=== PATIENT | female | born 1945 | race Caucasian/White ===

== ENCOUNTER 2017-08-05 14:06 | Emergency (ER) | payer MEDICARE ==
[~2017-08-05] VITALS: Ht 157.5 cm; Wt 55.8 kg
[~2017-08-05 14:06] MED LIST: ACYCLOVIR400 MG PO; ADVAIR 250-501 EACH IH; ALPHA-LIPOIC AC50 MG PO; ATIVAN1 MG PO; B-100 COMPLEX100 MG PO; BACTRIM DS TAB1 EACH PO; BROVANA15 MCG/2 M INH; BUDESONIDE EC3 MG PO; COLOSTRUM500 MG PO; CREON DR 24,001 EACH PO; CYCLOBENZAPRINE10 MG PO; DURAGESIC1 EAC1 TD; DURAGESIC1 EAC3 TD; DURAGESIC1 EACH TD; FORTICAL3.7 ML SL; GABAPENTIN600 MG PO; GAMMAGARD S-D 110 GM IV; GAMMAGARD S-D10 GM IV; GENTAMICIN40 MG/1 ML IRRIGATION; GENTAMICIN80 MG/100; KLOR-CON 1010 MEQ PO; LASIX40 MG PO; LEVOTHYROXINE75 MCG PO; LOMOTIL TABLET1 EACH PO; MACROBID 100 M100 MG PO; MULTI VITAMIN1 EACH PO; MYRBETRIQ50 MG PO; NYSTATIN100000 UN1 PO; OXYCODONE HCL10 MG PO; OXYCODONE HCL5 MG PO; PREVACID 24HR15 MG PO; PROVIGIL PO; PROVIGIL200 MG PO; PULMICORT0.5 MG/2 M INH; REGLAN5 MG PO; RELISTOR12 MG/0.6 SUB-Q; RESTASIS1 DROP OU; SALBUTAMOL INH; SINUS RELIEF14.7 M1 INH; VAGIFEM10 MCG VAGINAL; VAGIFEM10 MCG VG; VITAMIN E400 UNIT PO; VOLTAREN75 MG PO; XOPENEX INH; ZOFRAN4 MG PO
[2017-08-05] MEDS ORDERED: MACRODANTIN100 MG PO (16:15)
== END 2017-08-05 18:16 | disposition home or self-care (01) ==
LOC: ED 14:06
PROC: 0T9B70Z Drainage of Bladder with Drainage Device, Via Natural or Artificial Opening (ICD-10-PCS; principal; 2017-08-05)
DX: R53.1 Weakness (principal); D83.9 Common variable immunodeficiency, unspecified; N39.0 Urinary tract infection, site not specified; Z91.013 Allergy to seafood; Z91.011 Allergy to milk products; Z88.8 Allergy status to other drugs, medicaments and biological substances; Z88.1 Allergy status to other antibiotic agents; Z91.018 Allergy to other foods; Z91.040 Latex allergy status; Z88.5 Allergy status to narcotic agent; Z79.899 Other long term (current) drug therapy
CPT/HCPCS: 51702; 80053; 81001; 83605; 85025; 96374; 96375; 99284; J2060

== ENCOUNTER 2020-07-01 16:10 | Inpatient (IN) | payer MEDICARE ==
[~2020-07-01] VITALS: Ht 157.5 cm; Wt 54.5 kg
[~2020-07-01 16:10] MED LIST changes: +ALPHA LIPOIC AC50 MG PO; -ALPHA-LIPOIC AC50 MG PO; +MACRODANTIN100 MG PO
--- OUTSIDE RECORDS SUMMARY | 2020-07-01 16:42 | XMS ---
PreManage Notification: KATHY SANTANA [employer] Paralegal Events No recent Security Events currently on file CRITERIA MET - PDMP CARE PROVIDERS MACKENZIE PRATT Internal Medicine Current PHONE: [phone] Camille has no Care Guidelines for this patient. E.Susie VISIT COUNT (12 MO.) 1 Clemencia Goodrich M.C. 1 BARRERA Trevino TOTAL 2 NOTE: Visits indicate total known visits. ED/UCC VISIT TRACKING (12 MO.) 07/01/2020 16:11 [facility] [place] TYPE: Emergency COMPLAINT: - SHORTNESS OF BREATH, [facility]ARRHE[facility] DIAGNOSES: - Cough - Cough - emesis - Dysuria - Hypokalemia INPATIENT VISIT TRACKING (12 MO.) No inpatient visits to display in this time frame [email or web address]
[2020-07-01] MEDS ORDERED: VENTOLIN HFA18 GM INH (22:16)
[2020-07-01] MEDS ORDERED: CREON DR 24,001 EACH PO (22:18)
[2020-07-01] MEDS ORDERED: CEFDINIR300 MG PO (22:18)
[2020-07-01] MEDS ORDERED: CELEBREX100 MG PO (22:19)
[2020-07-01] MEDS ORDERED: ALL DAY ALLERGY10 MG PO (22:20)
--- NOTE | 2020-07-01 22:20 | NUR ---
RED EMILYLLO, WARM BLANKET PROVIDED. 1 MORE PILLOW FOR HEELS PROVIDED.
[2020-07-01] MEDS ORDERED: COPPER2 M1 (22:22)
[2020-07-01] MEDS ORDERED: L-LYSINE500 M3 PO (22:41)
[2020-07-01] MEDS ORDERED: MONTELUKAST SOD10 MG PO (22:42)
[2020-07-01] MEDS ORDERED: MYRBETRIQ25 MG PO (22:42)
--- NOTE | 2020-07-01 22:54 | NUR ---
Coop with admit assessment, tele#[address] SV rhythm, denies CP. On room air Lungs with exp and insp crackles at bases. Left base worse than Right. O2 4LNC. chronic. R port a cath accessed but not patent. as per report IVF w 40mEq K infusing LFA, IVF rate decresed to 150 as pt is not tolerataing at the rate that was ordered. c/o L generalized pain, was medicated with Oxycodone 20mg po c/o 10/02 pain. 125mg Fentanyl patches applied to R back. Pt is w/c bound at home
--- NOTE | 2020-07-01 23:45 | NUR ---
BOTTLED WATER AND APPLE JUICE PROVIDED.
--- NOTE | 2020-07-02 00:29 | NUR ---
resting, no ditress, O2 in place, tele#2 in place, ST rhythm at this time. eyes closed, resp even unlabored, call light at bedside, pt drinking her home brought water as she has many food allergies.
--- NOTE | 2020-07-02 01:48 | NUR ---
pt c/o increased itching. receiving Cefepine iv abx. redness around eyes noted, c/o itching head and arm, no redness noted around L arm iv site. will notify
--- NOTE | 2020-07-02 01:52 | NUR ---
Dr Clements notified via phone of pt c/o itchng, new orders reaceived to stop cefepine, give benadryl 25mg q6h prn itching.
--- NOTE | 2020-07-02 02:22 | NUR ---
received 25mg po Benadryl as per orders. cefepine stopped earlier. no further c/o itching at this time
--- NOTE | 2020-07-02 05:05 | NUR ---
pt feels like she is still having a reaction to her abx. she feels like she has a cap over her head. and that she usually gets lorazepan adn needs Benadryl 25mg IV instead of po as it has not done anything for her. no redness or edema of eyes or skin noted at this time
--- NOTE | 2020-07-02 05:19 | NUR ---
dR Carcamo NOTIFIED VIA PHONE OF PTS C/O AND REQUETS. oRDERED lORAZEPAM 1MG PO AND bENADRYL 50MG iv ONCE. LEAVE COPY OF HER ALLERGY PROCOTOL FROM DR ARSALAN RAMIREZ PT REQUESTSING IN CHART AND WILL REVIEW IN AM
--- NOTE | 2020-07-02 05:41 | NUR ---
lorazepam 1mg po and benadryl 50mg iv given. ivf infusing w K. warm pads to arms. cpox in place
--- NOTE | 2020-07-02 06:18 | NUR ---
Pt admitted from ED, increaed SOB. chronic O2 use at home. currently on 3LNC. sats wnl. lungs R fine crackles at bases, L coase crackles. no sob stated. helps with repositioning. Allevyn to buttocks.Received IV 1 liter IVF NS w 40 mEq K started in ED. followed by 1L D5LR w 40mEq K currently infusing at 125cc/hr. IVF will change after this bag, please see e-mar. Received Cefepime IV abx, received 63cc out of 100cc over infused over 2 1/2 hours and started c/o itching and allergic reaction. redness around eyes and slightly reddened face and forehead noted, no sob, no edema, no other redness. Dr Clements notified received Benadryl 25mg po and cefepime was dc'd. warm pads to arms due to c/o discomfort from K being infused on L arm IV site. f/c not chronic placed on admit. Pt has neurogenic bladder and self caths at home. Pt is w/c bound/chronic at home. Pt c/o of Benadryl not effective several hours later. Dr Clements notified again and Benadryl 50mg IV plus lorazepam 1mg po was given. no sob, no redness or edema noted at that time. Pt has chronic pain was medicated with Oxycodone 20mg per pain with good pain relief. Received fresh Fentanyl 125mg patches. Pt has many food and med allergies. uses call light. no emesis .
--- NOTE | 2020-07-02 06:54 | NUR ---
no further c/o itching or allergic reaction, drowsy, cpox in place. tele#[address] tachy at 107-122bpm, Resp 16, sats 94% 3LNC. IVF w K infusing, warm pads to both arms. f/c patent
--- NOTE | 2020-07-02 07:30 | NUR ---
REPORT RECEIVED FROM LEROY APPRENTICE RN. PT IN BED EYES CLOSED, VISUALIZED CHEST RISE AND FALL. PT REPORTEDLY HAS STRESSFUL NIGHT AND WAS ANXIOUS ABOUT MEDS AND CURRENT ILLNESS. WILL LET REST AT THIS TIME.
--- NOTE | 2020-07-02 09:30 | NUR ---
PT HAD LATE BREAKFAST, GIVEN MEDICATIONS W/ BREAKFAST. PT DENIES PAIN THIS AM. STATES SHE FEELS SHE SLEPT WELL AFTER RECEIVING BENADRYL LAST NIGHT. UP TO CHAIR FOR BREAKFAST. ALLEVYN TO [facility] FOR PREVENTATIVE MEASURES PER PT. LUNG SOUNDS CRACKLES SCATTERED THROUGHOUT, DIMINISHED IN BLL. PT DENIES SOB WEARING 3 L NC. STATES SHE NORMALLY WEARS 4L O2 AT NIGHT ONLY WHEN AT HOME, SHE IS NORMALLY ON ROOM AIR DURING THE DAY. BOWEL TONES ACTIVE, PT STATES SHE HAS HAD A POOR APPETITE LATELY, AND HAS DIFFICULTY FINDING "GOOD THINGS TO EAT WITH ALL MY ALLERGIES". LAST BM REPORTED 06/30/20. BLE WEAKNESS, PIVOT TRANSFER W/ FWW. W/C BOUND BASELINE. D5 LR W/ 20 K INFUSING, RATE CHANGED TO 85 MLS/HR. LAC 22 G IV REMAINS PATENT THOUGH SLUGGISH. PORT ON RT ARM ACCESSED IN ER, NO BLOOD RETURN NOTED, NOT USING AT THIS TIME. DENIES FURTHER NEEDS. CALL LIGHT IN REACH.
--- NOTE | 2020-07-02 13:34 | NUR ---
PATIENT IN CHAIR RESTING WITH EYES CLOSED. VISITOR IN ROOM. VITALS AND I&O'S CHARTED. CALL LIGHT IN REACH. NO FURTHER NEEDS AT THIS TIME.
--- NOTE | 2020-07-02 14:00 | NUR ---
AFTERNOON ASSESSMENT COMPLETE. PT REQUESTING PAIN MEDICATION FOR [address] CLARK AWARE. 10 MG OXYCODONE GIVEN. NO ACUTE CHANGES TO ASSESSMENT. PT REMAINS ON 3 L O2 VIA NC. POOR APPETITE EATING 25-50% OF MEALS. REQUESTING TO SPEAK TO DIETITCIAN, DIETARY CALLED. CREON GIVEN W/ MEALS. PT REMAINS SITTING UP IN CHAIR. D5 LR W/ 40 K INFUSING AT 75 MLS/HR IN 22 G LAC IV, REMAINS PATENT. NO SWELLING NOTED. CALL LIGHT IN REACH. PT CALLS APPROPRIATELY.
--- NOTE | 2020-07-02 14:27 | NUR ---
THIS RN INTO ROOM TO COMPLETE CASE MANAGEMENT ASSESSMENT. PATIENT SITTING UP IN CHAIR TALKING WITH DANIEL WAYNE. PATIENT STATES SHE LIVES AT HOME ALONE, ALTHOUGH SHE DOES HAVE RENTAL TENANTS WHO "WATCH AFTER HER FROM TIME TO TIME." PATIENT DENIES HAVING STAIRS INTO THE HOME AND THAT HER HOME IS COMPLETELY HANDICAP ACCESSIBLE DUE TO BED MOSTLY BED BOUND. PATIENT STATES SHE DOES HAVE AN ELECTRIC SCOOTER WHICH SHE USES FOR MOBILITY IN AND OUT OF HER HOME. PATIENT IS ABLE TO TRANSFER HERSELF SHORT DISTANCES TO THE [place], BED AND CHAIR WHEN NEEDED. PATIENT CONTACT MAURICIO QUINTERO [phone] IS PRESENT IN THE ROOM DURING ASSESSMENT. PATIENT IS ESTABLISHED WITH DR. TERENCE HART AND FILLS MEDICATION AT [facility] IN [place]. PATIENT DENIES FINANCIAL NEEDS AT THIS TIME, BUT DOES STATES SHE IS CONSIDERING SELLING HER HOME IN ORDER TO MOVE INTO ASSISTED LIVING. PATIENT REQUESTING INFORMATION ON LOCAL ASSISTED LIVING FACILITIES. INFORMATION GIVEN. WILL CONTINUE TO FOLLOW UP WITH PATIENT DURING HER STAY.
--- NOTE | 2020-07-02 15:10 | EKG ---
[facility] [address] [place] [address] Signed Sinus tachycardia Possible Left atrial enlargement Nonspecific ST and T wave abnormality Abnormal ECG No previous ECGs available Confirmed by OMAR CLARK MD ([id number]) on 07/02/2020 3:10:22 PM Electronically Signed By: OMAR CLARK MD 07/02/20 1510 PATIENT NAME: ESTHERKATHY TALON Electrocardiogram DATE OF : 45 PHYSICIAN: OMAR CLARK MD REPORT #: [id number] REPORT IS CONFIDENTIAL AND NOT TO BE RELEASED WITHOUT AUTHORIZATION
--- NOTE | 2020-07-02 15:44 | NUR ---
PATIENT WAS SLEEPING. I TRIED WAKING HER UP TO GET CLARIFICATION ON HER MULTIPLE FOOD ALLERGIES. SHE DID NOT WAKE UP FULLY TO GET CLEAR ANSWERS. APPARENTLY SHE NEEDS PUREED FOODS. CAREGIVER NOT PRESENT. WILL ADD PUREED TEXTURE AND NEUTROPENIC PRECAUTIONS TO DIET ORDER AND SEND WHAT WE CAN FOR MEALS THAT AREN'T ON HER ALLERGY LIST. HER ADMIT WEIGHT SAYS 187 LBS BUT SHE DOES NOT LOOK LIKE SHE WEIGHS 187 LBS, MAYBE 137 LBS.
[2020-07-02] MEDS ORDERED: EPIN0.3P IM (15:46)
[2020-07-02] MEDS ORDERED: PREDNISONE20 MG PO (15:48)
[2020-07-02] MEDS ORDERED: FENTANYL1 EAC3 TD (15:49)
[2020-07-02] MEDS ORDERED: SODIUM CHLORI1000 ML IRRIGATION (15:51)
[2020-07-02] MEDS ORDERED: GABAPENTIN300 MG PO (15:54)
[2020-07-02] MEDS ORDERED: MYRBETRIQ50 MG PO (16:16)
--- NOTE | 2020-07-02 17:34 | NUR ---
CHECKED ON PATIENT TO WAKE UP FOR DINNER AND WONT STAY AWAKE. WILL REAPPROACH AGAIN
--- NOTE | 2020-07-02 17:45 | NUR ---
PT HAVING DIFFICULTY STAYING AWAKE AFTER RECEIVING OXYCODONE 10 MG. RR 13 AND SATING 95% ON 3 L O2 VIA NC. PT RESPONSIVE TO VERBAL STIMULI. BUT FALLS BACK TO SLEEP SHORTLY AFTER. STATES SHE'S NOT HUNGRY AND IS CATCHING UP ON REST. WILL CONTINUE TO MONITOR. AFTERNOON MEDS HELD PER PT REQUEST.
--- NOTE | 2020-07-02 18:30 | NUR ---
PT AWAKE AND REQUESTING DINNER. AFTERNOON MEDS GIVEN LATE. PT IS MORE ALERT AND ORIENTED. URINE OUTPUT DECREASED. ATTEMPTED TO NOTIFY DR CLARK. 150 LAST 4 HOURS AND PT NEEDS 170 MLS TO FULFILL QUANTITY SUFFICIENT. NOW THAT PT IS AWAKE, ENCOURAGING PO INTAKE OF FLUIDS.
--- NOTE | 2020-07-02 19:04 | NUR ---
22 G IV IN LAC INFILTRATED. ARCH SUPPORT TECHNICIAN REX CALLED AND NOTIFIED. PT HAS POOR VENOUS ACCESS. DYLAN WAYNE ARCH SUPPORT TECHNICIAN TO COME AND ATTEMPT US IV. EGG CRATE MATTRESS PLACED ON BED FOR PREVENTATIVE MEASURES.
--- NOTE | 2020-07-02 19:37 | NUR ---
REPORT RECEIVED FROM DAY SHIFT RN. PT SITTING IN RECLINER WITH EYES CLOSED. AWAKENS EASILY. DENIES NEEDS. ARMS WRAPPED IN WARM BLANKETS FOR IV START. CALL LIGHT IN REACH. WHITE BOARD UPDATED.
--- NOTE | 2020-07-02 20:05 | NUR ---
WHEN IN TO ATTEMPT PERIPHERAL IV ACCESS IT WAS NOTED THAT PREVIOUS IV IN LAC AT INFILTRATION SITE HAD BEEN DISCONTINUED.
--- NOTE | 2020-07-02 20:30 | NUR ---
PERIPHERAL IV ACCESS ATTEMPTS X5 UNSUCCESSFUL, PATIENT TOLERATES WELL BUT UNABLE TO ESTABLISH ACCESS.
--- NOTE | 2020-07-02 22:10 | NUR ---
IV IN LEFT FOREARM PLACED BY FLIGHT KITCHEN MANAGER RN FLUSHED WITH BRISK BLOOD RETURN. RETURNED TO IVF AND IV ABX. AFTER A FEW MINUTES OF INFUSING PT REPORTED BURNING. IVF & ABX STOPPED. IV FLUSHED, NO BLOOD RETURN NOTED. INFILTRATION PALPATED. PIV DC'D WNL. TIP INTACT. CODING AND REIMBURSEMENT SPECIALIST NOTIFIED.
--- NOTE | 2020-07-02 22:15 | NUR ---
V/S AND I&O'S DONE. EVY/SIU CARE DONE.
--- NOTE | 2020-07-02 22:30 | NUR ---
EVENING ASSESSMENT COMPLETE. SCHEDULED MEDS ADMINISTERED PER EMAR. PRN ADMINISTERED FOR REPORTS OF PAIN. O2 3L/NC IN PLACE. SpO2 93%. RESPIRATIONS EVEN. SIU PATENT WITH CLEAR YELLOW URINE. ALLEVYN ON COCCYX WHICH PT REPORTS IS PREVENTATIVE. ASSISTED TO REPOSITION WITH PILLOWS. DENIES QUESTIONS OR CONCERNS. CALL LIGHT IN REACH.
--- NOTE | 2020-07-02 22:38 | NUR ---
CALLED DR CLARK TO DISCUSS DIFFICULTIES WITH PATIENTS PERIPHERAL ACCESS AFTER FAILED PERIPHERAL ATTEMPTS AND INFILTRATION OF U/S PLACED PERIPHERAL IV. PER DR CLARK OKAY TO TRY CATH-VIKI ON PORT AND UPDATED HIM ON THE RESULTS.
--- NOTE | 2020-07-02 23:22 | NUR ---
DISCUSSED WITH REMOTE SENSING ENGINEER UPDATED PLAN REGARDING MULTIPLE PIV ATTEMPTS. RIGHT CHEST PORT FLUSHED WITH 10 ML NS. NO BLOOD RETURN NOTED. REPOSITIONED PT IN MULTIPLE WAYS WITH NO BLOOD RETURN. CATHFLO ADMINISTERED PER PACKAGE INSTRUCTIONS.
--- NOTE | 2020-07-02 23:45 | NUR ---
CATHFLO ALLOWED TO DWELL FOR 30 MIN. IN TO ASSESS PORT. NO BLOOD RETURN NOTED. WILL ALLOW TO DWELL FOR 120 MIN PER PACKAGE INSTRUCTIONS.
--- NOTE | 2020-07-03 02:10 | NUR ---
CATHFLOW ALLOWED TO DWELL FOR 120 MIN. BRISK BLOOD RETURN AT THIS TIME. 5 ML WASTE. PULSATILE FLUSH WITH 30 ML NS. 2100 IV ABX INFUSING AT THIS TIME. PT RESTING WITH EYES CLOSED. AWAKENS EASILY WHEN SPOKEN TO BUT QUICKLY FALLS BACK TO REST. RESPIRATIONS EVEN. 02 3L/NC IN PLACE.
--- NOTE | 2020-07-03 03:50 | NUR ---
IV ABX COMPLETE. IVF WITH POTASSIUM INFUSING WNL. ASSISTED PT TO REPOSITION IN BED. PT DENIES FURTHER NEEDS AT THIS TIME. CALL LIGHT IN REACH.
--- NOTE | 2020-07-03 06:43 | NUR ---
VS AND I&O COMPLETE. MORNING LABS DRAW FROM PORT PER PROTOCOL. PULSATILE FLUSH WITH 30 ML NS AND RETURNED TO IVF. SCDHEDULED MEDS ADMINISTERED PER EMAR. HOB ELEVATED FOR SWALLOWING. MOIST NON-PRODUCTIVE COUGH NOTED. BREAKFAST ORDERED. NO FURTHER NEEDS AT THIS TIME. CALL LIGHT IN REACH.
--- NOTE | 2020-07-03 09:19 | NUR ---
THIS RN WAS LEAVING ON 07/02/20 DR. CLARK REQUEST PATIENT RECORDS TO BE SENT [facility] STAY. PER DR. CLARK PATIENT IS WILLING TO TRANSFER TO [facility] IF ABLE IT IS CLOSER TO HER CHEMO TREATMENT. INFORMATION FOR ADMISSION COMPILED AND SENT TO [facility].
--- NOTE | 2020-07-03 09:28 | NUR ---
PT UP CHAIR THIS MORNING. DECENT APPETITE, TOLERATED BREAKFAST WELL. TAKEN TO RADIOLOGY FOR CHEST X-RAY VIA WHEELCHAIR. BACK TO ROOM NOW AND REQUESTING TO GET BACK TO BED RATHER THAN CHAIR. D5 LR W/ 20K INFUSING INTO PORT. MORNING MEDICATIONS GIVEN. AUSCULTATED LUNG SOUNDS: SCATTERED CRACKLES THROUGHOUT LEFT LOBE; CLEAR RUL, DIMINISHED RLL. PT REMAINS ON 3 L NC SATING 97%, DENIES SOB. 100 MCG & 25 MCG FENTANYL PATCHES TO LEFT SHOULDER. PT C/O MINIMAL PAIN UNDERNEATH RIGHT RIB, HAS BEEN AWARE AND CONTRIBUTED TO CURRENT PNEUMONIA DX. INCENTIVE SPIROMETER AT BEDSIDE. PT DENIES FURTHER NEEDS AT THIS TIME. CALL LIGHT IN REACH.
--- NOTE | 2020-07-03 10:00 | NUR ---
PT WORKING WELL W/ PHYSICAL THERAPY, AMBULATING W/ FWW AND SBA.
--- NOTE | 2020-07-03 10:05 | NUR ---
THIS RN INTO TALK WITH PATIENT. [facility] INFORMATION GIVEN TO PATIENT. PATIENT CONFIRMS THAT SHE WOULD LIKE PLACEMENT AT THIS TIME. THIS RN INFORMED THE PATIENT THAT CHARTS HAVE BEEN SENT TO [facility] FOR ADMISSION AND THIS RN WILL CONTINUE TO FOLLOW UP ON DISCHARGE PLAN.
--- NOTE | 2020-07-03 11:12 | NUR ---
PATIENT RESTING IN BED. WATER REFRESHED. CALL LIGHT IN REACH. NOTHING NEEDED AT THIS TIME
--- NOTE | 2020-07-03 11:40 | NUR ---
DR AMBER TUCKER ON PT. CONTINUING W/ CURRENT PLAN OF CARE. IV ABX, IVF AND PHYSICAL THERAPY. PT LIKELY TO DC TO [facility] TOMORROW. FOLLOWING CASE MANAGEMENT ON PLAN.
[2020-07-03] MEDS ORDERED: CEFTRIAXONE2 G1 IV (11:46)
[2020-07-03] MEDS ORDERED: DURAGESIC1 EAC3 TD (11:47)
[2020-07-03] MEDS ORDERED: DURAGESIC1 EACH TD (11:47)
[2020-07-03] MEDS ORDERED: OXYCODONE HCL5 MG PO (11:48)
[2020-07-03] MEDS ORDERED: ATIVAN1 MG PO (11:49)
[2020-07-03] MEDS ORDERED: DOMPERIDONE PO (12:15)
[2020-07-03] MEDS ORDERED: PROCHLORPERAZIN10 MG PO (12:23)
--- NOTE | 2020-07-03 12:24 | NUR ---
MED REC COMPLETE
--- NOTE | 2020-07-03 13:55 | NUR ---
ATTEMPTED TO CONTACT ANA ROSA AT [facility] REGARDING ADMISSION TO FACILITY. LEFT MESSAGE FOR HER TO RETURN CALL.
--- NOTE | 2020-07-03 15:00 | NUR ---
PT WORKING WELL W/ PHYSICAL THERAPY. BACK TO BED AFTER SESSION. AFTERNOON ASSESSMENT COMPLETE. WEANED DOWN TO 1 L SATING 93%. NO ACUTE CHANGES TO ASSESSMENT OTHERWISE. PT CONTINUES TO DENY SOB EXCEPT W/ EXERTION AT TIMES. GIVEN TYLENOL AND 1 TAB OXYCODONE FOR 9/10 LEFT HIP PAIN AFTER THERAPY. PT STATES PAIN IS ALSO RELIEVED AT REST. NO FURTHER NEEDS AT THIS TIME. CALL LIGHT IN REACH.
--- NOTE | 2020-07-03 16:00 | NUR ---
PT CONTINUES TO C/O 10/02 LEFT HIP PAIN, ALREADY RECEIVED 5 MG OXYCODONE AND TYLENOL AT 1450, GIVEN ADDITIONAL 5 MG OXYCODONE FOR BREAKTHROUGH PAIN. PT REFUSING SHOWER OR BED BATH THIS AFTERNOON. ALLEVYN REMOVED FROM COCCYX (THERE FOR PREVENTATIVE REASONS) AND NO REDNESS NOTED. REPLACED W/ NEW ALLEVYN. PT REPOSITIONED, CATHETER CARE DONE. PT C/O NOSE DRYNESS AND GIVEN HUMIDIFIER FOR O2. DENIES FURTHER NEEDS AT THIS TIME. CALL LIGHT IN REACH.
--- NOTE | 2020-07-03 17:10 | NUR ---
PT GIVEN CREON AND ACYCLOVIR W/ DINNER PER REQUEST. TOLERATING FOOD WELL. PT HAS NOT HAD BM SINCE 06/30/20, UTILIZED NURSE INTITIATED ORDER FOR ABI, VERIFIED W/ PHARMACY D/T PT'S MANY ALLERGIES. PT STATES SHE NORMALLY TAKES A STOOL SOFTENER AT HOME PT TAKES HIGH DOSES OF NARCOTICS.
--- NOTE | 2020-07-03 18:32 | NUR ---
PATIENT IN DEEP SLEEP LEANING TO RIGHT SIDE DROOLING AND WHILE THIS IN STORE MARKETER WAS TRYING TO WAKE HER UP THERE WAS NO RESPONSE. THIS STAFF RIGHT AWAY CALLED RN. PATIENT IS NOW AWAKE COMMUNICATING WITH RN.
--- NOTE | 2020-07-03 18:43 | NUR ---
TAYLOR REYNOSO CALLED THIS RN TO ASSESS PT. CARBON COATER MACHINE OPERATOR REPORTED PT WAS DIFFICULT TO AROUSE, AND WAS SLUMPED TO THE SIDE ALSEEP IN CHAIR AND DROOLING. PT AWAKE AND ALERT WHEN THIS RN ENTERED ROOM, ALSO ORIENTED, 1 DAY OFF ON DATE. FACE AND TONGUE ARE SYMMETRIC. BEE TENDER AND BLE STRENGTH EQUAL. NO PRONATOR DRIFT NOTED. RIGHT PUPIL DILATED AND FIXED, GREATER THAN LEFT WHICH IS PIN POINT CONSTRICTED. PT STATES D/T HX OF TBI RIGHT PUPIL IS USUALLY "A LITTLE LARGER AND DOESN'T CHANGE IN SIZE." SIMILAR EPISODE HAPPENED YESTERDAY AFTER PT RECEIVED OXYCODONE IN THE AFTERNOON, PT WAS DIFFICULT TO ROUSE THEN. SHANIQUA GUSTAFSON RN ALSO IN TO ASSESS. PT DOES NOT FEEL NEW WEAKNESS, NUMBNESS AND TINGLING IN ALL EXTREMITIES AT BASELINE HX NEUROPATHY. VSS BP 146/64 HR 95 SATING 95% ON 1L NC, RR 14, TEMP 98.0.
--- NOTE | 2020-07-03 19:51 | NUR ---
REPORT RECEIVED FROM DAY SHIFT RN. PT SITTING IN RECLINER ALERT AND ORIENTED. DENIES NEEDS AT THIS TIME. WHITE BOARD UPDATED. CALL LIGHT IN REACH.
--- NOTE | 2020-07-03 21:03 | NUR ---
CALL LIGHT ON. ASSISTED pt TO BED, 1PA. LEGS ELEVATED. POSSESSIONS AND CALL LIGHT WITHIN REACH. NO FURTHER REQUESTS AT THIS TIME.
--- NOTE | 2020-07-03 22:34 | NUR ---
EVENING ASSESSMENT COMPLETE. SCHEDULED MEDS ADMINISTERED PER EMAR. PRN ADMINISTERED FOR GENERALIZED PAIN. PORT FLUSHED WITH 20 ML NS. BRISK BLOOD RETURN NOTED. IV ABX INFUSING WNL. OXYGEN INCREASED TO 3L/NC REQUESTED BY PT BECAUSE THAT IS WHAT SHE DOES AT HOME. COARSE LUNG SOUNDS HEARD ON THE LEFT SIDE. PT REPORTS DRY NON-PRODUCTIVE COUGH. ASSISTED TO REPOSITION IN BED. DENIES QUESTIONS OR CONCERNS AT THIS TIME. CALL LIGHT IN REACH.
--- NOTE | 2020-07-03 22:55 | NUR ---
IV ABX COMPLETE. PT RETURNED TO MAINTENANCE FLUIDS. ASSISTED TO REPOSITION IN BED. NO FURTHER NEEDS.
--- NOTE | 2020-07-03 23:50 | NUR ---
CALL LIGHT ANSWERED. PT C/O LEFT SIDE PAIN. PRN FOR PAIN ADMINISTERED PER EMAR. ASSISTED PT TO REPOSITION IN BED.
--- NOTE | 2020-07-04 00:45 | NUR ---
CALL LIGHT ANSWERED. PT REQUESTING ADDITIONAL PRN FOR LEFT SIDE PAIN. PRN FOR PAIN ADMINISTERED PER EMAR. ASSISTED PT TO REPOSITION. NO FURTHER NEEDS.
--- NOTE | 2020-07-04 03:25 | NUR ---
PT RESTING IN BED WITH EYES CLOSED, NAD.
--- NOTE | 2020-07-04 06:12 | NUR ---
IN PATIENT ROOM FOR VITALS AND I&O. PATIENT PROVIDED WITH MEDS BY ROSANA. LILY DENIES ANY FUTHER NEEDS AT THIS TIME.
--- NOTE | 2020-07-04 06:41 | NUR ---
VS AND I&O COMPLETE. PT REQUESTED TO TAKE REGLAN AND CREON WITH BREAKFAST AFTER MEDS SCANNED INTO EMAR. WILL HOLD AND PASS ALONG TO DAY SHIFT RN. SIU WITH QS CLEAR YELLOW URINE. OXYGEN RETURNED TO 1L/NC. PT DENIES FURTHER NEEDS. CALL LIGHT IN REACH.
--- NOTE | 2020-07-04 07:05 | NUR ---
PATIENT CALLED. WARM BLANKET PROVIDED. NO OTHER NEEDS AT THIS TIME.
--- NOTE | 2020-07-04 07:25 | NUR ---
this received report from tru ramirez. pt appears to be resting this am with respirations noted.
--- NOTE | 2020-07-04 08:20 | NUR ---
PHONE CALL RECVD FROM ANA ROSA AT [facility]. ANA ROSA STATES THAT SHE IS CONCERNED ABOUT THE PATIENT FOOD ALLERGIES. ANA ROSA STATES SHE WILL DISCUSS THE PATIENT WITH THEIR DRILLING FIELD OPERATOR AND CALL BACK WITH A DETERMINATION TODAY.
--- NOTE | 2020-07-04 09:00 | NUR ---
PATIENT AWAKE IN BED, VITALS AND I&OS CHARTED. FACE AND HANDS WASHED. RN NATI IN ROOM. CALL LIGHT IN REACH
--- NOTE | 2020-07-04 09:07 | NUR ---
this rn in pts room to give pt morning meds and do morning assessment. pt doesn't have concerns have this time.
--- NOTE | 2020-07-04 09:16 | NUR ---
while pts taking morning meds pt states that she felt like she was getting short of breath. this rn turned up oxygen to 2l per pt request for comfort. pt is moving air well in lungs
--- NOTE | 2020-07-04 09:25 | NUR ---
RECVD CALL BACK FROM ANA ROSA AT [facility], PATIENT DECLINED DUE TO WORRY REGARDING FOOD ALLERGIES. THIS RN IN TO SPEAK WITH PATIENT REGARDING NEW PLACEMENT PLAN. INITIALLY LESLIE HERNANDEZ DISCUSSED WITH PATIENT, BUT SHE STATES SHE WOULD LIKE TO BE PLACED IN [place] SINCE SHE RECVS HER IV/IG WEEKLY INFUSIONS THERE AT THIS TIME. ADVISED PATIENT I WILL CONTACT [facility] AND LESLIE AT THE [facility] FOR ADMISSION. WILL UP DATE PATIENT WHEN I RECIEVE A RESPONCE FROM EITHER FACILITY. SHANIQUA GUSATFSON RN UPDATED.
--- NOTE | 2020-07-04 10:00 | NUR ---
SPOKE WITH SUMAN AT [facility]. FAX NUMBER OBTAINED AND RECORDS SENT. PER SUMAN SHE WILL REVIEW THE CHART WHEN RECVD AND CALL BACK WITH A DECISION.
--- NOTE | 2020-07-04 10:13 | NUR ---
this rn in pts room per pt request to provide pt with pt with pain meds for pain in her left hip
--- NOTE | 2020-07-04 10:59 | NUR ---
CALL PLACED TO [facility], PATIENTS RECORDS RECVD VIA FAX. STAFF STATES SHE WILL MAKE SURE THEIR ADMISSIONS DEPARTMENT WILL BE REVIEWING THE CHART.
--- NOTE | 2020-07-04 11:45 | NUR ---
this rn in pts room to give pt her mid day meds. pt states that the pain meds helped her left hip pain. pt setup for lunch and states that she needs nothing else at this time
--- NOTE | 2020-07-04 13:03 | NUR ---
PER FAX FROM [facility] NO AVAILABLE BEDS AT THIS TIME AND FACILITY UNABLE TO MANAGE PATIENTS ALLERGIES WITHIN THE FACILITY.
--- NOTE | 2020-07-04 14:55 | NUR ---
PATIENT AWAKE, IN BED. LUNCH TRAY JUST BROUGHT OUT BY INSTALLER HELPER. PATIENT STATES SHE ONLY ATE A COUPLE BITES OF GREEN BEANS BECAUSE SHE COULDN'T SWALLOW THEM. SHE ATE ALL OF THE RICE AND REALLY LIKED IT. ALSO HAD PUREED CHICKEN. SHE NEEDS CERTAIN SOLID FOODS PUREED DUE TO THE RIGHT SIDE OF HER THROAT BEING PARALYZED. SHE ENJOYED THE CHOCOLATE GF COOKIE SINCE IT IS SOFTER. SHE LIKES THE FOOD SHE HAS BEEN GETTING AND IS ENJOYING MORE VARIETY THAN FOODS SHE EATS AT HOME. SOMEONE DOES HER GROCERY SHOPPING AND HELPS WITH THE COOKING. USUALLY ITS A CROCKPOT ROAST OR SOUP. SHE WAS NOT DRINKING ANY ENSURE OR BOOST BECAUSE SHE IS ALLERGIC TO SOY. SHE CANNOT DRINK MILK WITHOUT TAKING LACTASE. SHE WILL EAT SMALL AMOUNTS OF YOGURT WITHOUT TAKING LACTASE AND SHE ASKED FOR SOME YOGURT FOR AN EVENING SNACK AND FOR BREAKFAST. GLUTEN-FREE MENU IS AT HER BEDSIDE. MAJOR FOOD ALLERGIES ARE: SALMON, SOY, WHEAT, ASPARTAME, GRAPEFRUIT, PEANUT, CASHEW, SHELLFISH, AND PUMPKIN. SHE CAN TOLERATE ALMONDS IN THE FORM OF ALMOND MILK. I TOOK HER DINNER ORDER FOR TONIGHT AND BREAKFAST ORDER FOR TOMORROW. HER WEIGHT IS 120 LBS WHICH GIVES HER A BMI OF 21.95. WILL CONTINUE TO MONITOR.
--- NOTE | 2020-07-04 17:25 | NUR ---
PATIENT UP TO CHIAR, VITALS AND I&OS CHARTED. CALL LIGHT IN REACH, SIU EMPTIED. STEP STOOL UNDER FEET FOR COMFORT.
--- NOTE | 2020-07-04 17:45 | NUR ---
THIS RN PROVIDED PT WITH 10MG OF OXY FOR PTS STATED PAIN PER PTS REQUEST
--- NOTE | 2020-07-04 21:00 | NUR ---
Pt boosted to hob, sorenson care done, geneva care done, skin barrier cream applied, chux changed. Call light within reach, bed in lowest position. No further assistace needed at this time.
--- NOTE | 2020-07-04 21:51 | NUR ---
medicated with Oxycodone 20mg po 8/10 l sided pain. O2 2LNC, no other distress.
--- NOTE | 2020-07-04 23:37 | NUR ---
medicated with lorazepam 2mg earlier, anxiety, I dislocated my left shoulder and is back on. flexoril 10mg po given. "I just wont be able to use l arm for a while, i was reaching for my chap stick, it happens all the time" "Its backin place now". reassured
--- NOTE | 2020-07-05 00:57 | NUR ---
RESTING, EYS CLOSED, NO DISTRESS, O2 IN PLACE, F/C PATENT, CALL LIGHT AT BEDSIDE, HOB ELEVATED TO COMFORT
--- NOTE | 2020-07-05 03:00 | NUR ---
RESTING, NO DISTRESS, O2 IN PLACE, CALL LIGHT AT BEDSIDE
--- NOTE | 2020-07-05 06:41 | NUR ---
Pt has slept, O2 2LNC, was medicated with Oxycodone per pain with good pain results, and medicated per anxiety . Medicated with muscle relaxant per c/o 'dislocation and placeing of chronic issue of left shoulder, moving l arm well, no edema . no crepitus noted around left shoulder or visual abnormality f/c patent, helps with turning in bed. stood edge of bed earlier in shift, tolerated well 2PA. IVF INFUSING.
--- NOTE | 2020-07-05 07:30 | NUR ---
Received call from Bahvani from [facility] and they have accepted Amanda for today. UPdated friend will transport. would like her there this am if possible. Orders printed and placed on Dr. desk. Beckham updated we will see at 0830 and I will attempt to have her dc this am.
--- NOTE | 2020-07-05 08:30 | NUR ---
REPORT RECEIVED FROM NIGHT RN AND PT. CARE RESUMED. PT. IS ALERT AND ORIENTED, SLIGHTLY ANXIOUS. LUNGS DIM. IN THE BASES. SHE IS ON 2L AND O2 SAT. IS 96%. WHEN ATTEMPTING TO TITRATE O2 TO 1L, PT. REFUSED AND STATED THE NURSE TRIED YESTERDAY AND SHE DID NOT TOLERATE WELL. SIU PATENT AND DRAINING LIGHT YELLOW URINE. PT. STATES SHE CAN PIVOT WITH ASSISTANCE, BUT HAS NOT WALKED IN A WHILE. IV SITE WNL AND FLUSHES WELL. DISCUSSED POC, DC, AND MEDS. PT. LEFT RESTING IN BED WITH CALL LIGHT IN REACH.
--- NOTE | 2020-07-05 09:05 | NUR ---
ORDERS, RX, PASRR AND DC SUMMARY SENT TO REHAB.
--- NOTE | 2020-07-05 09:19 | NUR ---
ATTEMPTED TO CONTACT DYLAN QUINTERO FOR PATIENT TRANSPORTATION TO [facility]. NO ANSWER AND NO VOICEMAIL SET UP TO LEAVE MS. WILL CONTINUE TO TRY TO CONTACT.
--- NOTE | 2020-07-05 09:49 | NUR ---
SPOKE WITH DYLAN QUINTERO PATIENT POA. DYLAN STATES THAT HE WILL GATHER HER BELONGINGS AND CAR THEN WILL COME TO PICK PATIENT UP. PATIENT UPDATED AND OKAY WITH PLAN OF DISCHARGE. HILTON GUSTAFSON RN NOTIFIED OF THE PLAN. WILL BE AVAILABLE FOR FOLLOW UP IF NEEDED.
== END 2020-07-05 12:20 | DRG 196 ==
LOC: ED 16:10 → MS 20:43
PROVIDERS: ADMIT Internal Medicine; ATTEND Internal Medicine
DX: J84.9 Interstitial pulmonary disease, unspecified (principal); J18.9 Pneumonia, unspecified organism; J96.21 Acute and chronic respiratory failure with hypoxia; D80.1 Nonfamilial hypogammaglobulinemia; F11.23 Opioid dependence with withdrawal; Z20.822 Contact with and (suspected) exposure to COVID-19; E87.6 Hypokalemia; J44.9 Chronic obstructive pulmonary disease, unspecified; J45.40 Moderate persistent asthma, uncomplicated; G89.4 Chronic pain syndrome; K21.9 Gastro-esophageal reflux disease without esophagitis; K59.09 Other constipation; R19.7 Diarrhea, unspecified; N31.9 Neuromuscular dysfunction of bladder, unspecified; M81.0 Age-related osteoporosis without current pathological fracture; E03.9 Hypothyroidism, unspecified; G62.9 Polyneuropathy, unspecified; T45.1X5S Adverse effect of antineoplastic and immunosuppressive drugs, sequela; Z99.3 Dependence on wheelchair; Z66 Do not resuscitate; Z79.899 Other long term (current) drug therapy; Z79.51 Long term (current) use of inhaled steroids; Z79.52 Long term (current) use of systemic steroids; Z88.1 Allergy status to other antibiotic agents; Z88.0 Allergy status to penicillin; Z88.8 Allergy status to other drugs, medicaments and biological substances; Z91.040 Latex allergy status; Z85.72 Personal history of non-Hodgkin lymphomas
CPT/HCPCS: 36415; 71045; 71046; 80048; 80053; 83605; 83735; 84484; 85025; 93005; 93010; 94640; 94760; 96374; 96375; 97110; 97116; 97162; 99285-25; C9803; J0692; J0696; J1170; J1200; J2997; J3475; J3480; J7030; J7121; U0003

== ENCOUNTER 2020-09-20 08:37 | Emergency (ER) | payer OTHER, MEDICARE ==
[~2020-09-20] VITALS: Ht 157.5 cm; Wt 54.4 kg
[~2020-09-20 08:37] MED LIST changes: +ALL DAY ALLERGY10 MG PO; +CEFDINIR300 MG PO; +CEFTRIAXONE2 G1 IV; +CELEBREX100 MG PO; +COPPER2 M1; +DOMPERIDONE PO; +EPIN0.3P IM; +FENTANYL1 EAC3 TD; +GABAPENTIN300 MG PO; +L-LYSINE500 M3 PO; +MONTELUKAST SOD10 MG PO; +MYRBETRIQ25 MG PO; +PREDNISONE20 MG PO; +PROCHLORPERAZIN10 MG PO; +SODIUM CHLORI1000 ML IRRIGATION; +VENTOLIN HFA18 GM INH
--- NOTE | 2020-09-20 21:00 | EKG ---
[facility] [address] [place], [place] [address] Signed Normal sinus rhythm Possible Left atrial enlargement Nonspecific T wave abnormality Abnormal ECG When compared with ECG of 01-JUL-2020 16:20, ST no longer depressed in Inferior leads T wave inversion no longer evident in Inferior leads Confirmed by SATINDER ROLDAN DO ([id number]) on 09/20/2020 9:00:07 PM Electronically Signed By: SATINDER ROLDAN DO 09/20/20 2100 PATIENT NAME: ESTHERKATHY VELASQUEZ Electrocardiogram DATE OF : 45 PHYSICIAN: SATINDER ROLDAN DO REPORT #: [id number] REPORT IS CONFIDENTIAL AND NOT TO BE RELEASED WITHOUT AUTHORIZATION
== END 2020-09-20 12:40 | disposition home or self-care (01) ==
LOC: ED 08:37
DX: S06.0X0A Concussion without loss of consciousness, initial encounter (principal); V49.9XXA Car occupant (driver) (passenger) injured in unspecified traffic accident, initial encounter; E03.9 Hypothyroidism, unspecified; Z88.8 Allergy status to other drugs, medicaments and biological substances; Z88.0 Allergy status to penicillin; Z88.1 Allergy status to other antibiotic agents; Z91.018 Allergy to other foods; Z91.011 Allergy to milk products; Z91.013 Allergy to seafood; Z88.7 Allergy status to serum and vaccine; Z79.899 Other long term (current) drug therapy
CPT/HCPCS: 51701; 70450; 71045; 72125; 80053; 81001; 84484; 85025; 93005; 93010; 99285-25

== ENCOUNTER 2021-01-08 07:58 | Emergency (ER) | payer MEDICARE ==
[~2021-01-08] VITALS: Ht 157.5 cm; Wt 45.3 kg
[2021-01-08] MEDS ORDERED: PREDNISONE20 MG PO (10:35)
[2021-01-08] MEDS ORDERED: DOXYCYCLINE HY100 MG PO (10:35)
== END 2021-01-08 11:25 | disposition home or self-care (01) ==
LOC: ED 07:58
DX: J20.9 Acute bronchitis, unspecified (principal); J45.901 Unspecified asthma with (acute) exacerbation; E03.9 Hypothyroidism, unspecified; Z85.828 Personal history of other malignant neoplasm of skin; Z85.72 Personal history of non-Hodgkin lymphomas; Z90.49 Acquired absence of other specified parts of digestive tract; Z90.710 Acquired absence of both cervix and uterus; Z90.89 Acquired absence of other organs; Z91.013 Allergy to seafood; Z91.011 Allergy to milk products; Z91.018 Allergy to other foods; Z88.8 Allergy status to other drugs, medicaments and biological substances; Z91.010 Allergy to peanuts; Z88.4 Allergy status to anesthetic agent; Z88.1 Allergy status to other antibiotic agents; Z88.5 Allergy status to narcotic agent; Z91.040 Latex allergy status; Z88.7 Allergy status to serum and vaccine; Z91.09 Other allergy status, other than to drugs and biological substances; Z79.899 Other long term (current) drug therapy; Z79.52 Long term (current) use of systemic steroids; Z20.822 Contact with and (suspected) exposure to COVID-19
CPT/HCPCS: 71045; 80053; 85025; 94640; 99285-25; C9803; J7512; U0003

== ENCOUNTER 2022-02-15 20:44 | Inpatient (IN) | payer MEDICARE ==
[~2022-02-15] VITALS: Ht 157.5 cm; Wt 45.0 kg
[~2022-02-15 20:44] MED LIST changes: +DOXYCYCLINE HY100 MG PO
--- OUTSIDE RECORDS SUMMARY | 2022-02-15 20:46 | XMS ---
PreManage Notification: KATHY SANTANA Security Bill Collector Events No recent Security Events currently on file CRITERIA MET - BARBARAP CARE PROVIDERS MACKENZIE PRATT Internal Medicine Current PHONE: [phone] JC COATES Physical Medicine \T\ Rehabilitation Current PHONE: [phone] ELE SHEETS Nurse Practitioner: Family Current [facility] PHONE: [phone] Camille has no Care Guidelines for this patient. E.D. VISIT COUNT (12 MO.) 2 [facility] 1 [facility] [place] [facility]. TOTAL 3 NOTE: Visits indicate total known visits. ED/UCC VISIT TRACKING (12 MO.) 02/15/2022 20:44 [facility] [place] TYPE: Emergency COMPLAINT: - POSS STROKE 11/27/2021 17:09 [facility] [place] TYPE: Emergency DIAGNOSES: - Urinary tract infection, site not specified - ABD PAIN - Periumbilical pain 02/27/2021 16:24 [facility] [place] TYPE: Emergency DIAGNOSES: - ams - Somnolence INPATIENT VISIT TRACKING (12 MO.) No inpatient visits to display in this time frame [id number]
--- NOTE | 2022-02-16 01:30 | NUR ---
PT ARRIVES VIA ED GURNEY ACCOMPANIED BY WAQAS WAYNE. BEDSIDE REPORT OBTAINED. NEURO HANDOFF PERFORMED WITH NO NOTED CHANGES IN NEUROLOGICAL STATUS. [facility]IGH[facility]. PT REMAINS NONVERBAL AND IS NOT FOLLOWING COMMANDS. PT CAN BE SEEN MOVES BILAT. UPPER EXTREMITIES WITH MORE PURPOSEFUL MOVEMENTS ON L. UPPER EXTREMITY. PT WITH DILATED R. PUPIL. THIS IS OF A KNOWN PROBLEM IN HER PMHX. IVS ASSESSED, GLUCOSE ASSESSED AND PT CONTINUESLY MONITORED.
--- NOTE | 2022-02-16 02:16 | NUR ---
PT PROVIDED WITH ORAL CARE AT THIS TIME, SHE BIT DOWN ON ORAL CARE SPONGE, SHE WAS THEN PROVIDED WITH PEN AND PAPER, SHE GRIPPED PAPER, SHE WAS UNABLE TO PUT PEN TO PAPER, SHE CONTINUES TO MOVE MOUTH IF TO TRY TO SAY SOMETHING, WITH NO WORDS FORMED.
--- NOTE | 2022-02-16 06:30 | NUR ---
DR. WOODSON CONSULTED REGARDING MAG LEVEL OF 1.4, FEVER, CONTINUED TACHYCARDIA AND LEUKOCYTOSIS. THIS RN REQUEST IV MAINTENANCE FLUIDS, HOWEVER, DR. PARKS WOULD LIKE TO WAIT TILL FURTHER EVALUATION BY HER. NEW ORDERS OBTAINED. PT REASSESSED AND FOUND TO BE IN DISCOMFORT.
[2022-02-16] MEDS ORDERED: FENTANYL1 EAC1 TOP (08:00)
[2022-02-16] MEDS ORDERED: NALOXONE HCL4 MG NAS (08:01)
[2022-02-16] MEDS ORDERED: LORAZEPAM1 MG PO (08:05)
[2022-02-16] MEDS ORDERED: FAMOTIDINE20 MG PO (08:06)
--- NOTE | 2022-02-16 08:15 | NUR ---
RN IN ROOM TO ADMINISTER SCHEDULED MEDICATIONS - PT OPENS EYES TO SOUND BUT IS UNABLE TO FOLLOW COMMANDS - INTENTIONAL MOVMENT ONLY NOTED ON RIGHT SIDE EXTREMETIES. ORAL CARE PROVIDED. PT REPOSISTIONED AND HEEL PROTECTORS APPLIED. SIU DRAINING CONC MINIMAL URINE. MD AT BEDSIDE ROUNDING.
--- NOTE | 2022-02-16 09:30 | NUR ---
PT BACK TO ROOM FROM CT - PAIN MEDICATION ADMINISTERED FOR FLACC SCORE OF 6. RR EVEN AND UNLABORED. PT REMAINS NON VERBAL AND UNABLE TO FOLLOW ANY INSTRUCTIONS. IV SITE PATENT, REPOSISTIONED TO RIGHT SIDE.
--- NOTE | 2022-02-16 10:43 | NUR ---
UPDATED ON PT CURRENT TEMP OF 102.7 AFTER EARLIER PRN TYLENOL. NO FURTHER ORDERS RECEIVED AT THIS TIME.
--- NOTE | 2022-02-16 11:42 | NUR ---
PT RESTING IN BED WITH EYES CLOSED. RR EVEN AND UNLABORED. DECREASED FLACC SCORE CURRENTLY DOES NOT APPEAR TO NEED FURTHER PAIN MEDICATION.
--- NOTE | 2022-02-16 12:14 | NUR ---
PT REPOSITIONED TO SIDE WITH PILLOWS - HEEL PROTECTORS ON. PT UNABLE TO MOVE EXTREMEITIES ON COMMAND BUT DOES LIFT EYEBROWNS "YES" WHEN ASKED IF COMFORTABLE RIGHT NOW.
--- NOTE | 2022-02-16 14:00 | NUR ---
UPDATED ON LOW URINE OUTPUT - IV FLUIDS ORDERED. PT REMIANS FEBRILE - PRN TYLENOL ADMINISTERED. PT REPOSISTIONED. NO CHANGES IN NEURO ASSESSMENT - UNABLE TO FOLLOW COMMANDS, PURPOSEFUL MOVEMENT ONLY NOTED ON LEFT SIDE. PT NOTED TO HAVE SMALL LOOSE BM. CLEAN ATTENDS PLACED.
--- NOTE | 2022-02-16 15:46 | NUR ---
PT REPOSISTIONED TO BACK.
--- NOTE | 2022-02-16 18:56 | NUR ---
PT REPOSISTIONED - AFEBRILE AT THIS TIME HOWERVER PRN TORADOL ADMINISTERED FOR PAIN AND CONTINUED FEVER CONTROL. PT HOLDING LEG LIKE ITS CRAMPING. ORAL CARE PROVIDED. PT A LITTLE BIT MORE RESPONSIVE THIS EVENING SHAKING EYES/EYE BROWS YES/NO WITH QUESTIONS.
--- NOTE | 2022-02-16 20:20 | NUR ---
PT NOTED TO BE RESTLESS AND GROANING, AGITATED, ATIVAN 1MG IV ADMINISTERED AND FENTANYL 25MCG ADMINSTERED IV PRN AT THIS TIME FOR 5/10 NONVERBAL PAIN SCALE. PT REPOSITIONED AND PILLOWS PLACED X3 TO PROTECT TIMUR PROMINENCES. PT RESTING QUIELTY IN BED, NO LONGER MOANING OR RESTLESS. V/S STABLE. PT MORE ALERT TO STAFF AT BEDSIDE AT THIS TIME. SHE REMAINS NONVERBAL
--- NOTE | 2022-02-16 22:13 | NUR ---
PT RESTING RELAXED IN BED, SNORING NOTED. REPOSITIONED, CONTINUES TO HAVE LOW URINE OUT IS AWARE. NO OTHER NEW CONCERNS AT THIS TIME.
--- NOTE | 2022-02-17 00:11 | EKG ---
[facility] [address] [place] [address] Signed Sinus tachycardia Nonspecific ST and T wave abnormality Abnormal ECG When compared with ECG of 20-SEP-2020 09:36, ST now depressed in Inferior leads ST now depressed in Anterior leads T wave inversion no longer evident in Anterior leads Confirmed by CHRISTIANO PARKS MD ([id number]) on 02/17/2022 12:11:08 AM Electronically Signed By: CHRISTIANO PARKS MD 02/17/22 0011 PATIENT NAME: ESTHERKATHY Electrocardiogram DATE OF : 45 PHYSICIAN: CHRISTIANO PARKS MD REPORT #: [id number] REPORT IS CONFIDENTIAL AND NOT TO BE RELEASED WITHOUT AUTHORIZATION
--- NOTE | 2022-02-17 00:34 | NUR ---
PT RESTING QUIELTY IN BED, REPOSITINED, NO MOANING OR GRIMACE, NO RESTLESSNESS. RESP RATE 16/MIN. 96% OXYGEN SATURATION ON ROOM AIR. NO NEW CONCERNS
--- NOTE | 2022-02-17 04:39 | NUR ---
ORAL CARE PROVIDED, WITH WATER/MOUTH WASH AND ORAL SPONGE, ALSO CHAP STICK APPLIED TO LIPS. PT RESTING SEPIDEH IN MED NO NEW COCNERNS, URINE OUT MUCH IMPROVED THIS AM.
--- NOTE | 2022-02-17 08:30 | NUR ---
PATIENT UP TO BSC PER REQUEST. PATIENT HAD LRG SOFT BM, PATIENT WASHED UP AND HAIR COMBED. NEW BRIEF ON AND LINEN CHANGED. PATIENT BACK INTO BED, VITALS AND I&OS CHARTED. SIU EMPTIED. CALL LIGHT IN EASY REACH
--- NOTE | 2022-02-17 08:52 | NUR ---
RECEIVED REPORT ALL QUESTIONS ANSWERED, WENT INTO PT ROOM AND SHE WAS TALKING WITH BOTANY LABORATORY ASSISTANT. ANSWERED QUESTION AND DENIES PAIN AT THIS TIME.
--- NOTE | 2022-02-17 08:53 | NUR ---
PT UP TO BEDSIDE COMMODE HAD LARGE BM AND WAS ABLE TO STAND WITH ONE PERSON ASSISTANCE. LINE CHANGED AND CLEAN ATTENDS INPLACE.
--- NOTE | 2022-02-17 10:07 | NUR ---
Amanda is awake and appears to be watching t.v. upon entering the room. She feels that her care has been "good" and adds "I have no complaints" Amanda takes a bit of time to answer questions but she can tell me that she comes from home alone, and she would like to return to home. She is unable to tell me the date or the year and she thinks that she is in the hospital in [place]. I did orient her to place and time including year and month. I also let her know that yesterday was [place]. She thought for a minute and then said "You told me that earlier", I did not, but consider that staff members have attempted to orient her to time and place earlier today. Amanda requests water at this time but denies other needs. Dr. Bay is aware.
--- NOTE | 2022-02-17 10:33 | NUR ---
COMPLETED RICHARD GOEL, PASSED AND DID WELL WITH THAT. GAVE PT SOME JELLO AND BROOTH. PT HEAD OF BED IN AN UPRIGHT POSSITION.
--- NOTE | 2022-02-17 10:56 | NUR ---
PT TOLERATERED AUREA AND BROTH AT THIS TIME, WENT OVER MENUE AT THIS TIME AND ORDER LUNCH AND DINNER.
--- NOTE | 2022-02-17 11:36 | NUR ---
POA INTO SEE PT AT THIS TIME. THEY ARE TALKING AND VISITING.
--- NOTE | 2022-02-17 12:25 | NUR ---
PT SITTING UP IN BED TRYING TO EAT DUE TO SHE IS VERY PICKEY ABOUT WHAT SHE EATS. SHE DOES NOT LIKE THE MEATLOAF. SO SHE IS TRYING OTHER THINGS ON HER TRAY.
--- NOTE | 2022-02-17 13:08 | NUR ---
PT FEED SELF, BUT DID NOT EAT WELL FOR LUNCH. HER POA WAS INTO VISIT AND STATES "SHE IS A VERY PICKY EATER." PT WATCHING TV AT THIS TIME.
--- NOTE | 2022-02-17 13:55 | NUR ---
SIU REMOVED PER ROSANA SINGH.
--- NOTE | 2022-02-17 14:43 | NUR ---
PT IS IN WORKING WITH PT AT THIS TIME.
--- NOTE | 2022-02-17 15:01 | NUR ---
PT WORKED WITH PT AND IS NOW UP IN THE CHAIR AT THIS TIME.
--- NOTE | 2022-02-17 16:25 | NUR ---
pt had not voided till new sorenson catheter placed, this is due to pt self cathes at home.
--- NOTE | 2022-02-17 17:14 | NUR ---
PT SITTING UP IN BED EATTING DINNER AND YELLED FOR NURSES. WENT INTO HER ROOM AND SHE PUSHED HER TRAY AWAY AND JUST STAIRED AT SPANISH TEACHER. THEN STATES "I AM JUST SLOW" SPANISH TEACHER GAVE HER TRAY BACK INTO REACH AND SHE STARTED EATTING.
--- NOTE | 2022-02-17 18:06 | NUR ---
REPORT RECEIVED FROM ROSANA SINGH. AWAITING PTS ARRIVAL TO MED/SURG.
--- NOTE | 2022-02-17 18:22 | NUR ---
PT TRANSFERED TO MS 121 REPORT GIVEN TO CLAUDIO WAYNE ALL QUESTIONS ANSWERED. WHEN INFORMATION SECURITY SPECIALIST ARRIVED TO M/S FLOOR WITH PT RESEARCH SCIENTIST HELP GET PT SETTLED. PT DID NOT HAVE ANY PERSONAL BELONGINGS TO SEND TO THE M/S FLOOR. PT CHART AND ABX'S SENT WITH PT ALSO DURING THIS MOVE. RESEARCH SCIENTIST TOOK MEDS AND CHART. I&O'S CURRENT WITH MOVE.
--- NOTE | 2022-02-17 18:27 | NUR ---
PT'S BELONGINGS FOUND IN TOP SHELVING IN ROOM 129, STRETCHING PRESS OPERATOR WALKED THEM OVER AND PLACED IN LOWER CLOSET IN ROOM 121.
--- NOTE | 2022-02-17 18:27 | NUR ---
PT ARRIVED FROM CCU BY BED. PT STRONG ENOUGH TO USE BOTH ARMS AND ELEVATE LEGS OFF THE BED ON HER OWN AND KEEP THEM ELEVATED. PT PUSHES ARMS AND LEGS AGINST RESISTANCE. NOMRAL SENSATION NOTED TO ALL EXTREMITIES. PT HAS TROUBLE EXPRESSING IDEA AND ANSWERING QUESITONS BUT IS UNDERSTOOD WHEN SHE DOES USE WORDS. PT OREINTED ONLY TO HER FIRST NAME. IS NOT ABLE TO STATE WHERE SHE IS YEAR, MONTH, REASON FOR HOSPITAL STAY OR EVEN HER LAST NAME. PT GIVES A CONFUSED EXPRESSION WHEN ASKED THESE QUESTIONS INCLUIDNG HER OWN NAME. VITAL SIGNS STABLE. NIH STORKE SCORE OF 2. PT DENIES PAIN AND NAUSEA. ENSURE OFFERED AND PT STATES SHE IS ABLE TO DRINK ENSURE DESPITE HER ALLERGIES. PT DRINKS ENTIRE ENSURE WITHIN 10 MINUTES. PT DENIES ADDITIONAL REQUESTS OR COMPLAINTS AT THIS TIME. IV FLUIFDS INFUSING. BED RAILS UP. CALL LIGHT IN PTS LEFT HAND. BED ALARM ON.
--- NOTE | 2022-02-17 19:57 | NUR ---
REPORT RECEIVED FROM DAY SHIFT RN. PT LYING IN BED AWAKE. DENIES NEEDS AT THIS TIME. BED ALARM FOR SAFETY. WHITE BOARD UPDATED. CALL LIGHT IN REACH.
--- NOTE | 2022-02-17 21:37 | NUR ---
pt resting and watching TV. No needs voiced.
--- NOTE | 2022-02-17 22:10 | NUR ---
EVENING ASSESSMENT COMPLETE. SCHEDULED MEDS ADMIN PER EMAR. IV ABX INFUSING PER ORDER. PORT FLUSHED WITH NS, BRISK BLOOD RETURN NOTED. DRESSING CDI. PT ORIENTED TO FIRST NAME ONLY. MIXED SIGNAL DESIGN ENGINEER STRENGTH EQUAL BILAT IN UPPER AND LOWER EXTREMITIES. PT ABLE TO FOLLOW DIRECTIONS. SIU PATENT WITH YELLOW URINE. PT REPORTS SHE IS COMFORTABLE AT THIS TIME. CALL LIGHT IN REACH. BED ALARM FOR SAFETY.
--- NOTE | 2022-02-17 23:29 | NUR ---
PT HEARD MOANING FROM NURSES STATION. THIS RN IN TO ROOM. PT REPORTS LOWER BACK AND LEG PAIN. PRN FOR PAIN ADMIN PER EMAR. ASSISTED TO REPOSITION. NO FURTHER NEEDS.
--- NOTE | 2022-02-18 02:40 | NUR ---
PT RESTING IN BED WITH EYES CLOSED. RESPIRATIONS EVEN. CALL LIGHT IN REACH. BED ALARM FOR SAFETY.
--- NOTE | 2022-02-18 04:03 | NUR ---
PT AWAKE IN BED. REPORTS NOT SLEEPING WELL. STATES "I'M ANXIOUS" AND "I WISH I COULD HAVE SOMETHING TO KNOCK ME OUT." PRN FOR ANXIETY ADMIN PER EMAR. ASSESSMENT COMPLETE. NEURO ASSESSMENT UNCHANGED. PT SLOW TO RESPOND, DIFFICULTY FINDING WORDS AT TIMES. GASOLINE SERVICE ATTENDANT STRENGTH EQUAL BILAT. PT ABLE TO PARTICIPATE IN CARES AND FOLLOW DIRECTIONS. PT REPOSITIONED SELF IN BED. SIU CARE DONE. WARM BLANKETS PROVIDED. NO FURTHER NEEDS AT THIS TIME. CALL LIGHT IN REACH. BED ALARM FOR SAFETY.
--- NOTE | 2022-02-18 05:55 | NUR ---
MORNING LABS DRAWN FROM RIGHT CHEST PORT PER PROTOCOL. IV ABX INFUSING PER ORDER. PT REPORTS SHE IS COMFORTABLE AND WAS ABLE TO GET SOME REST. VS AND I&O COMPLETE. NO FURTHER NEEDS.
--- NOTE | 2022-02-18 07:08 | NUR ---
REPORT RECEIVED FROM ROSANA PETE. PT RESTING IN SUPINE POSITION WITH HEAD OF BED AT 15 DEGREES, WITH EYES CLOSED. RESPIRATIONS EVEN AND UNLABORED. BED RAILS UP. CALL LIGHT WITHIN REACH. PT ALLOWED TO REST UNDESTURBED.
--- NOTE | 2022-02-18 08:34 | NUR ---
MORNING ASSESSMENT AND MEDICATION DUE. PT RESTLESS IN BED. PT DENIES PAIN AND NAUSEA. PT HAS PULLED OUT PORT A CATH NEEDEL AND IS POKING IT TOWARD THIS RN. PT TOLD TO PUT NEEDEL DOWN. PT COMPLIES. NEEDLE PLACED IN SHARPS. PT UP TO EDGE OF BED AND UP TO COMODE SHEETS ARE SOILED WITH STOOL. PT UNSTEADY ON FEET BUT TRANSFERS WITH ONE PERSON ASSIST AND FWW, PT DOES NOT USE WALKER BUT PUSHES IT ASIDE. PT HAS LARGE BROWN FORMED BOWEL MOVEMENT. EVY CARE DONE. PT UP TO CHAIR WITH STAND BY ASSIST. PT IMPULSIVE AND NOT AWARE OF SURROUDNINGS OR SAFETY HAZARDS. PORT A CATH REACCESSED PER PROTCOL. BRISK BLOOD RETURN NOTED. IV FLUIDS RESTARTED. PT ORIENTED ONLY TO SELF, FOLLOWS DIRECTIONS AND IS EASILY REDIRECTED. PT UNAWARE OF PLACE, DATE, TIME, SITUATION OR SURROUNDINGS. PT DENIES PAIN AND NAUSEA AT THIS TIME. THIS RN WAS TOLD IN REPORT YESTERDAY THAT PT HAD A FENTANYL PATCH ON HER LEFT LEG. NO PATCH FOUND ANYWHERE ON PTS BODY. PT REPORTS "IT FELL OFF" PT UNABLE TO EXPLAIN OR ELABORATE ON THIS COMMENT. EQUAL AND STRONG STRENGHT NOTED AGAINST RESISTANCE TO ALL EXTREMITIES, NO FACIAL ASEMETRY NOTED. PT SLOW TO FIND WORDS, TAKES CONSIDERABEL TIME AND APPEARS TO HAVE DIFFICULTY WITH WORD FINDING. PUPILS UNCHANGED. NIH SCORE OF 2 RELATED TO PTS INABILTITY TO STATE HER AGE AND HER INABILITY TO DESCRIBE PICTURE WITH WORDS. LUNGS SOUNDS CLEAR. HEART TONES REGULAR. PT HAS GOOD APPITITE FOR OATMEAL THIS MORNING, ENSURE ALSO PROVIDED.ABDOMEN SOFT AND NON TENDER. CLERA YELLOW URINE NOTED IN LARGE QUANTITIES IN SIU CATHETER. PT REMAINS UP TO CHAIR. CHAIR ALARM ON. CALL LIGHT WITHIN REACH.
--- NOTE | 2022-02-18 09:35 | NUR ---
THIS RN TO ROOM TO CHECK ON PT. PT RESTING IN CHAIR. WATCHING TV. PT REQUESTS TO GO BACK TO BED. EDUCATION DONE WITH PT REGARDING STAYING UP DURING THE DAY. PT VERBLALIZES UNDERSTANDING. PT DENIES PAIN AND NAUSEA. NO ADDITIONAL REQUESTS OR COMPLAINTS. CALL LIGHT WITHIN REACH.
--- NOTE | 2022-02-18 09:53 | NUR ---
PT HAS A BOWEL MOVEMENT WHILE IN THE FOWLER WITH PHYSICAL THERPAY. PT BACK TO ROOM AND UP TO COMODE. EVY CARE DONE. DEPENDS PLACED. PT CONTINUES TO DENY PAIN AND NAUSEA. CONTINUES WORKING WITH PHYSICAL THERAPY IN THE ROOM. CALL LIGHT WITHIN REACH.
--- NOTE | 2022-02-18 10:26 | NUR ---
THIS RN TO ROOM TO CHECK ON PT. PT REMAINS UP TO CHAIR. PT DENIES PAIN AND NAUSEA. PT DENIES REQUESTS OR COMPLAINTS. CALL LIGHT WITHIN REACH. PT ASSISTED WITH FINDING A TV STATION SHE LIKES.
--- NOTE | 2022-02-18 11:27 | NUR ---
THIS RN TO ROOM TO CHECK ON PT. PT UP TO CHAIR WORKING WITH OCCUPATIONAL THERAPY. PT ESPARZA HAIR AND BRUSHES TEETH. PTS FRIEND, CLOTILDE COVINGTON, TO BEDSIDE TO VISIT WITH PT. PT STATES TO UPDATE CLOTILDE. CLOTILDE UPDATEDON PT STATUS AND PLAN OF CARE. CLOTILDE STATES PT IS [facility] AND ABLE TO STATE HER BIRTHDAY AND RECOGNIZE PEOPLE IN THE ROOM. CLOTILDE ALSO STATES PT IS "CONFUSED" AND "DOING WEIRD THINGS AT HOME." CLOTILDE SUSPECTS THAT PT DOES NOT TAKE HER HOME MEDICAITONS PROPERLLY. PT IS UNABLE TO IDENTIFY CLOTILDE BY NAME, UNSURE IF THIS IS DISORIENTATION OR EXPRESSIVE APHASIA. PT REMAINS UNABLE TO STATE HER FULL NAME OR BIRTHDAY. PT DNEIES PAIN AND NAUSEA. NO ADDITIONAL NEEDS AT THIS TIME. CALL LIGHT WITHIN REACH.
--- NOTE | 2022-02-18 12:28 | NUR ---
THIS RN TO ROOM TO CHECK ON PT. LUNCH DELIVERED. ENSURE PROVIDED WITH LUNCH. PT FEEDING SELF. PT DENIES PAIN AND NAUSEA. NO ADDIITONAL REQUESTS OR COMPLAINTS. CALL LIGHT WITHIN REACH. CHAIR ALARM ON.
--- NOTE | 2022-02-18 12:45 | NUR ---
Spoke with Amanda and she has great difficulty finding words. She is unable to remember anyone's names, phone, address. She tells me Ruben, emergency contact, is the rehabilitation caseworker at the [facility]. She gives her ok for me to call him. Called and spoke with Ruben. Amanda, prefers to be called Mati. 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 She lives in a [place] home and uses an electric wc. She also has a wc van and Ruben is a friend and he has been driving her for 7 years to [facility] out of town. He and her cg Gemma Jaimes have been attempting to assist her. Plan is for pt to sell her home to pay for placement into an [facility]. He states pt has renters who would like to buy her home. He gave me Gemma's number and asked I call her to find out pts finances for placement. Gemma assists pt MWF each week and helps pt to pay her bills. He request for anything medical or financial we speak with Gemma. I asked about a POA and pt states she has one completed. He states he knows she did complete a POA few years ago,but has no idea where it is. I called and left a message for Gemma asking she call. Pt was in agreement for placement when I spoke with her.
--- NOTE | 2022-02-18 13:10 | NUR ---
PT FINISHED WITH LUNCH. PT REQEUSTS TO GO BACK TO BED TO REST. STAND BY ASSIST WITH FWW BACK TO BED. PT REMAINS CONFUSED AND DISORIENTED ASKING "WHERE AM I." PT REORIENTED TO PLACE AND EVENTS. PT DENIES PAIN AND NAUSEA. NO ADDITIONAL REQUESTS OR COMPLAINTS. CALL LIGHT WITHIN REACH. BED RAILS UP.
--- NOTE | 2022-02-18 13:17 | NUR ---
WHEN I CAME BACK FROM LUNCH. HER CHAIR ALARM WENT OFF NURSE WAS ALREADY IN ROOM. SO PATIENT WANTED TO USE THE BATHROOM SO WE WALKED HER IN. PATIENT IS NOW IN BED. WITH BED ALARM ON. AND CALL LIGHT CLOSE.
--- NOTE | 2022-02-18 13:55 | NUR ---
THIS RN TO ROOM WITH DR. PARKS FOR ROUNDS. PT RESTING IN BED WITH HEAD OF BED AT [address] PARKS UPDATED ON PT STATUS AND ASSESSMENT. PT ABLE TO ANSWER SOME QUESTIONS BUT CONTINUES TO HAVE DIFFICULTY WITH WORD FINDING AND EXPRESSING IDEAS. PT REPORTS 6/10 PAIN "IN MY SACRAL AREA." NO SKIN BREAK DOWN NOTED. REDNESS NOTED TO MID SPINE WHERE SPINAL BONES/COLUM IS PROMINANTLY SEEN, ALLEVY APPLIED FOR SKIN PROTECTION. SEE MAR FOR MEDICATION GIVEN. PT OREINTED TO FIRST NAME BUT CONINTUES TO BE UNABLE TO STATES HER BIRTHDAY, THE MONTH, YEAR, OR REASON FOR HOSPITALIZATION. PT IS ABLE TO STATES SHE IS AT "[facility]." PT UNABLE TO EXPLAIN THAT THIS IS A HOSPITAL BUT WHEN OFFERED WORDS SHE AGREES OR DISAGREES. PT ABLE TO FIND AND EXPRESS IDEAS WITH SOME HELP WITH WORD FINDING. PT EXPLAINES TO THE DOCTOR THAT HER THOUGHTS AND WORDS ARE "MIXED UP." STRENGTH EQUAL BILATERALLY AND STRONG RAG ROOM SUPERVISOR, PLANTAR/DORSI FLEXION AND LEG/ARM MOVEMENT NOTED. RIGHT EYE CONTINUES TO BE NON REACTIVE TO LIGHT. PT IS ABLE TO TRACK WITH BOTH EYES. LUNG SOUNDS CLEAR. HEART TONES REGULAR ALTHOUGH TACHY AT TIMES. PT CONTINUES TAKING ENSURE. SIU CATHETER DRAINING CLEAR YELLOW, ALMOST PALE GREEN, DILUTE URINE. PT REQUESTS TO NAP. LIGHTS DIMMED. BED RAILS UP. BED ALARM ON. CALL LIGHT WITHIN REACH AND PT DEMONSRATES USE OF CALL LIGHT. NO ADDITIONAL REQUESTS OR COMPLAINTS.
--- NOTE | 2022-02-18 15:33 | NUR ---
THIS RN TO ROOM TO CHECK ON PT. PT VISITING WITH POULTRY BONER. PT INCONSISTANT WITH REPORTING ALLERGIES. PT CONTINUES TO STATE SHE IS ABLE TO DRINK BOOST AND ENSURE DESPITE HER ALLERGIES. PT HAS MULTIPLE COMMENTS ON THE "BAD TASTE" OF THE FOOD SHE IS GIVEN. PT ENCORUAGED TOORDER FOODS THAT SHE WANTS TO EAT FOR EACH MEAL. PT VERBALIZES UNDERSTANDING OF ORDERING FOOD. PT DENIES PAIN AND NASUEA AT THIS TIME. NO ADDIITONAL REQUESTS OR COMPLAINTS. CALL LIGHT WITHIN REACH. FRIEND AT BEDSIDE. BD ALARM ON. HEAD OF BED AT 30 DEGREES.
--- NOTE | 2022-02-18 15:50 | NUR ---
PATIENT HAS A LOT OF FOOD ALLERGIES BUT SOME ARE NOT TRUE ALLERGIES. SHE IS DRINKING ENSURE JUST FINE AND SHE COULD USE THE CALORIES AND PROTEIN SO I ENTERED THE SUPPLEMENT INTO MEAL IQ SO SHE GETS AN ENSURE (NO CHOCOLATE) WITH MEALS. ROSANA ELLSWORTH, MENTIONED PATIENT TOLERATES ENSURE AND LIKES THEM SO ADDING THEM TO MEAL TRAYS IS A GOOD IDEA. PATIENT STATES SHE MAY HAVE LOST A FEW LBS RECENTLY. HER DOWNSTAIRS NEIGHBOR IS VISITING AND SAID SHE DOESN'T THINK THE PATIENT HAS EVER WEIGHED MORE THAN 105 LBS. ANOTHER LADY GROCERY SHOPS AND STOCKS THE PATIENTS FRIDGE AND PANTRY WITH FOOD THURSDAY, WEDNESDAYS, AND FRIDAYS. SOME ITEMS ARE HOME COOKED, SOME ARE CONVENIENCE FOODS SUCH GLUTEN-FREE FROZEN PIZZA. CONTINUE REGULAR DIET WITH ENSURE AT EACH MEAL. WILL CONTINUE TO MONITOR.
--- NOTE | 2022-02-18 16:08 | NUR ---
Received a call from Gemma, pts cg and person who assists her to shower and pay bills. Pt has been declining over the last year. Pt has become increasingly forgetful. Difficulty finding words is new. Per cg, pt was at [facility] a year ago and she believes this is where pt would like to return. She also states pt is not getting treatment for rhumatoid arthritis but IVIG for a history of CA. Her pcp is [facility] in [place]. Admitting notified. Per cg pt has stated she would like to be in [place] in an [facility], so she can be nearer her IVIG treatments she gets every 2 weeks. Gemma also states, pt has renter who living in her downstairs. They plan on buying pts home, but will not proceed with buying until pt has been placed. Let Gemma know I will work for placement to a SNF for pt strengthening and Gemma and Gonzalo will work on placement to an Assisted when pt completes her time at the . Will update them tomorrow. Chart faxed to [facility].
--- NOTE | 2022-02-18 16:15 | NUR ---
PT HERE FOR POSSIBLE CVA, UTI AND METABOLIC ENCEPHALOPATHY, PT UP WITH 1 PERSON ASSIST AND FWW TO CHAIR AND WITH PHYSICAL THERAPY THIS SHIFT. PT DECLINES SHOWER THIS SHIFT AND IS OFFERED BED BATH. PT CONTINUES TO REPORT SWALLOWING DIFFICULTIES, ASPIRATION PRECATUIONS IN PLACE. PRN TYLENOL GIVEN FOR 6/10 SACRAL PAIN. ALLEVYN APPLIED TO MID SPIN FOR REDNESS. NIH SCORE OF 2 THIS SHIFT FOR DIFFICULTY WITH WORD FINDING AND INABILITY TO EXPRESS HER AGE OR BIRTHDAY. PT DISORIENTED TO MOST QUSTIONS, ORIETNED TO HER FIRST NAME. RIGHT PUPIL CONTINUES TO BE NON REACTIVE TO LIGHT. SIU CATHETER REMAINS IN PLACE WITH LIGHT YELLOW/GREEN DILUTE URINE, LARGE QUANITTIES. PT PULLED OUT PORT A CATH NEEDLE THIS SHIFT, REACCESSED PER PROTOCOL. IV ABX GIVEN AND IV FLUIDS CONTINUE. NO FENTANYL PATCH PRESENT ON PTS BODY, MD AWARE. PT DOES NOT USE CALL LIGHT. PURPOUSFUL HOURLY ROUDNING COMPLETED.
--- NOTE | 2022-02-18 17:09 | NUR ---
DINNER DELIVERED TO PT. PT UP TO CHAIR WITH 1 PERSON ASSIST AND FWW. PT FEEDING SELF. PT REQUESTS ENSURE, PROVIDED. PT DENIES PAIN AND NAUSEA. PT DENIES ADDITIONAL REQUESTS OR COMPLAINTS. CALL LIGHT WITHIN REACH. CHAIR ALARM ON.
--- NOTE | 2022-02-18 17:50 | NUR ---
PT CALL LIGHT ON. PT REPORTS PAIN AND TIGHTNESS IN HER LOWER BACK. PT REQUESTS MEDICATION. PT DOES NOT RATE PAIN, FLACC SCORE OF 1/10. PT EATING DINNER. PT DENIES ADDITIONAL REQUESTS OR COMPLAINTS. CALL LIGHT WITHIN REACH. CHAIR ALARM ON.
--- NOTE | 2022-02-18 18:17 | NUR ---
THIS RN TO ROOM TO CHECK ON PT. PT REQUESTS TO GET BACK TO BED. PT REPORTS LOWER BACK PAIN "BECUASE YOU MADE ME GET UP TO THE CHAIR." PT REQUESTS ADDIITONAL MEDICATION. PT RATES PAIN AT 8/10. PT ASSISTED BACK TO BED WITH ONE PERSON ASSIST AND FWW. CONSUTLED AND ORDERS GIVEN FOR LIDOCANE PATCH. ORDERS ENTERD, REPEAT BACK PERFORMED. ASKS "DO YOU KNOW WHO THE MANUFATURE IS FOR THE MEDICINE." PT STATES "I KNOW IF IT WILL WORK FROM WHO MADE IT." PT ASSUED THAT LIDOCANE PATCHES ARE EFFECTIVE FOR BACK PAIN. PT ASSITED WITH POSITIONING IN BED FOR COMFORT. PT STATES GETTING BACK TO BED "HELPS THE PAIN." LIDOCANE PATCH APPLIED. NO ADDIITONAL REQUESTS OR COMPLAINTS. CALL LIGHT WITHIN REACH. BED RAILS UP. BED ALARM ON.
--- NOTE | 2022-02-18 19:36 | NUR ---
REPORT RECEIVED FROM DAY SHIFT RN. PT LYING IN BED ALERT. DENIES NEEDS. REPORTS PAIN IMPROVED WITH PAIN PATCH. WHITE BOARD UPDTED. CALL LIGHT IN REACH.
--- NOTE | 2022-02-18 22:49 | NUR ---
EVENING ASSESSMENT COMPLETE. SCHEDULED MEDS ADMIN PER EMAR. PT REPORTS RIGHT GLUTEAL PAIN THAT RADIATES DOWN THE BACK OF HER THIGH 09/01. PRN FOR PAIN ADMIN PER EMAR. HOB ELEVATED. NO COUGHING OR CHOKING NOTED WITH SWALLOWING MEDS. PT ORIENTED TO SELF ONLY. SLOW TO RESPOND WITH DIFFICULTY FINDING WORDS. SIU PATENT WITH YELLOW/GREEN URINE. SIU CARE DONE. PT ABLE TO REPOSITION SELF IN BED. WARM BLANKET AND STRAWBERRY INSURE PROVIDED PER REQUEST. NO FURTHER NEEDS AT THIS TIME. CALL LIGHT IN REACH. BED ALARM FOR SAFETY.
--- NOTE | 2022-02-19 01:29 | NUR ---
PT AWAKE IN BED. IN TO REPOSITION WITH PILLOWS FOR COMFORT. PT REPORTS SHE IS WARM ENOUGH AND COMFORTABLE AFTER ASSIST. NO FURTHER NEEDS. BED ALARM FOR SAFETY.
--- NOTE | 2022-02-19 02:54 | NUR ---
PT LYING ON LEFT SIDE RESTING WITH EYES CLOSED. RESPIRATIONS EVEN AND UNLABORED. BED ALARM FOR SAFETY.
--- NOTE | 2022-02-19 05:01 | NUR ---
CALL LIGHT ANSWERED. PT REPORTS RIGHT GLUTEAL, THIGH PAIN 8/10. PRN FOR PAIN ADMIN PER EMAR. RIGHT CHEST PORT DRESSING LOOSE. NEW DRESSING PLACED. PORT FLUSHED PER PROTOCOL WITH BRISK BLOOD RETURN NOTED. ASSISTED PT TO REPOSITION FOR COMFORT. NO FURTHER NEEDS.
--- NOTE | 2022-02-19 06:10 | NUR ---
PT REPORTS CONTINUED PAIN 10/02. DR. PARKS NOTIFIED. NEW TELEPHONE ORDERS RECEIVED VERIFIED WITH READBACK METHOD.
--- NOTE | 2022-02-19 07:15 | NUR ---
Report from Janay Francis RN. Patient resting in bed with eyes closed, Respirations even and unlabored. call light in reach, bed rails up X2. Allowed to rest at this time.
--- NOTE | 2022-02-19 08:47 | NUR ---
ALERT, SITTING UP IN RECLINER, EATING BREAKFAST. ASSESSMENT COMPLETED, AM MEDICATIONS ADMINISTERED. TAKES WITHOUT DIFFICULTY. CALL LIGHT IN REACH.
--- NOTE | 2022-02-19 08:57 | NUR ---
GOT PATIENT UP OUT OF BED THIS MORNING. PATIENT IS NOW SITTING UP IN HER CHAIR EATING HER BREAKFAST. CHAIR ALARM IS ON.
--- NOTE | 2022-02-19 09:16 | NUR ---
Texted Bhavani at [facility] to see if this pt may return. She was there 1 year ago. Awaiting response.
--- NOTE | 2022-02-19 10:00 | NUR ---
In and spoke with Mati. Discussed where she would like to go on dc. Pt is agreeable to a SNF. I will fax her chart to [facility] and [facility]. Pt states she has viewed [facility] in [place] and has a place she would like to go. We discussed POA as pt had one completed with [facility] a few years ago, they have not been able to find. She would like to redo. I contacted Ruben and Susan porter. Both agree to meet here tomorrow at 10:00 to complete POA. Pts friend Gemma will miner pick the POA form.
[2022-02-19] MEDS ORDERED: ASCORBIC ACID500 M3 PO (14:58)
[2022-02-19] MEDS ORDERED: LO-DOSE ASPIRIN81 MG PO ×2 (14:58→16:19)
[2022-02-19] MEDS ORDERED: CORAL CALCIUM1 EAC3 PO ×2 (14:59→16:21)
[2022-02-19] MEDS ORDERED: REFRESH RELIEVA10 M1 OU (15:00)
[2022-02-19] MEDS ORDERED: COENZYME Q10200 MG PO (15:00)
[2022-02-19] MEDS ORDERED: CRANBERRY PLUS1 EAC1 PO (15:02)
[2022-02-19] MEDS ORDERED: K-TAB ER20 MEQ PO ×2 (15:02→16:21)
[2022-02-19] MEDS ORDERED: SELENIUM50 MCG PO (15:03)
[2022-02-19] MEDS ORDERED: RUTIN500 MG PO (15:03)
[2022-02-19] MEDS ORDERED: SENNA-S 8.6-501 EACH PO ×2 (15:04→16:23)
[2022-02-19] MEDS ORDERED: MELATONIN3 MG PO (15:05)
[2022-02-19] MEDS ORDERED: ALLERGY RELIEF60 MG PO ×2 (15:05→16:16)
[2022-02-19] MEDS ORDERED: COLACE100 MG PO (15:06)
[2022-02-19] MEDS ORDERED: DIPHEN12.5 MG/5 PO ×2 (15:07→16:16)
[2022-02-19] MEDS ORDERED: LOMOTIL TABLET1 EACH PO ×2 (15:07→16:23)
[2022-02-19] MEDS ORDERED: MIRALAX17 GM PO ×2 (15:11→16:23)
[2022-02-19] MEDS ORDERED: 12 HOUR NASAL R15 ML NAS ×2 (15:11→16:23)
[2022-02-19] MEDS ORDERED: L-LYSINE500 M1 PO (15:12)
--- NOTE | 2022-02-19 15:44 | NUR ---
medications reconciled using patient's medication list
[2022-02-19] MEDS ORDERED: ACYCLOVIR400 MG PO (16:17)
[2022-02-19] MEDS ORDERED: EPIN0.3P IM (16:18)
[2022-02-19] MEDS ORDERED: XOPENEX0.31 MG/3 INH (16:18)
[2022-02-19] MEDS ORDERED: FENTANYL1 EAC1 TOP (16:19)
[2022-02-19] MEDS ORDERED: CYCLOBENZAPRINE10 MG PO (16:19)
[2022-02-19] MEDS ORDERED: CELEBREX100 MG PO (16:19)
[2022-02-19] MEDS ORDERED: OXYCODONE HCL5 MG PO (16:20)
[2022-02-19] MEDS ORDERED: GABAPENTIN300 MG PO (16:20)
[2022-02-19] MEDS ORDERED: LORAZEPAM1 MG PO (16:21)
[2022-02-19] MEDS ORDERED: RESTASIS MULTI5.5 ML OP (16:22)
[2022-02-19] MEDS ORDERED: MONTELUKAST SOD10 MG PO (16:22)
[2022-02-19] MEDS ORDERED: FAMOTIDINE20 MG PO (16:24)
[2022-02-19] MEDS ORDERED: PREVACID 24HR15 MG PO (16:25)
[2022-02-19] MEDS ORDERED: BUDESONIDE EC3 MG PO (16:25)
[2022-02-19] MEDS ORDERED: LEVOTHYROXINE75 MCG PO (16:25)
--- NOTE | 2022-02-19 16:30 | NUR ---
Notified by Erika at [facility] they will accept this pt tomorrow and would like her there by 2pm. Dr. Bay called and was able to answer questions Erika had from their RN regarding antibiotics and the catheter. Called and updated pts stacey, Gemma. She will bring Mati clothing and personal items to take to [facility]. She is unable to transport and will contact Ruben to check if he can transport Mati to [facility]. If he cannot, she will call me back.
--- NOTE | 2022-02-19 17:00 | NUR ---
Received a call from Gemma, they cannot transport Mati. They requests I call the [facility] van. They are aware there will be a $100 fee. Gemma will bring a check and states she will bring the POA form and check by 10:00. Called Lopez from [facility] and he confirms they will transport pt per [facility] van at 1245 and use our wc.
--- NOTE | 2022-02-19 17:00 | NUR ---
NADIRA Spoke with and she states she has spoken with the clinic from where Dr. Sumner works. IVIG will be put on hold for a while.
--- NOTE | 2022-02-19 17:24 | NUR ---
Covid test ordered and Rt notified.
--- NOTE | 2022-02-19 17:30 | NUR ---
both nares swabbed without complication. sample taken to lab.
--- NOTE | 2022-02-19 19:15 | NUR ---
RECEIVED REPORT FROM MARY JANE WAYNE. PT RESTING IN BED WATCHING TV. REPORTS NO FURTHER NEEDS AT THIS TIME. CALL LIGHT WITHIN REACH.
--- NOTE | 2022-02-19 20:20 | NUR ---
IN PT ROOM FOR INSULATION HELPER, VS, I/O'S. PT RESTING IN BED ORIENTED TO ALL BUT DATE/TIME AT THIS TIME. PT REPORTS PAIN 5/10 IN SACRAL AREA AT THIS TIME. LIDOCAINE PATCH REMOVED FROM LEFT LOWER BACK. PULSES PRESENT THROUGHOUT, LUNGS CLEAR THROUGHOUT, ACTIVE BOWEL TONES X4. SKIN IS C/D/I, PT ABLE TO MOVE SELF IN BED. ALLEYVN IN PLACE ON LOWER BACK AREA, C/D/I. PT REPORTS NO NAUSEA, DIZZINESS, SOB AT THIS TIME. N/T IN FEET, PT STATES THIS IS CHRONIC. PT HAD X1 BM, EVY CARE PERFORMED, NEW DEPENDS IN PLACE. SIU CARE PERFORMED. PORT HAS NO REDNESS/SWELLING, PT REPORTS NO PAIN. SIU DRAINING TO GRAVITY. CALL LIGHT WITHIN REACH, NO FURTHER NEEDS AT THIS TIME.
--- NOTE | 2022-02-19 22:00 | NUR ---
IN PT ROOM FOR ABX HANGING. PT RESTING IN BED WATCHING TV. PORT IS WNL AT THIS TIME. CALL LIGHT WITHIN REACH, NO FURTHER NEEDS.
--- NOTE | 2022-02-19 23:00 | NUR ---
1PA FWW AND GAITBELT TO AMBULATE IN HALLWAY, BACK TO , NEW ATTENDS IN PLACE, BACK TO BED, BED ALARM SET FOR SAFTY
--- NOTE | 2022-02-20 00:07 | NUR ---
PT RESTING IN BED W/EYES CLOSED. RESPIRATIONS ARE EVEN AND UNLABORED, NO SIGNS OF DISTRESS. IV FLUIDS INFUSING DIRECTED. CALL LIGHT WITHIN REACH, BED ALARM ON.
--- NOTE | 2022-02-20 00:37 | NUR ---
ANSWERED PT CALL LIGHT. PT REPORTS PAIN 8/10 IN RT HIP. PRN OXY GIVEN (SEE EMAR). ICE PACK PROVIDED. CALL LIGHT WITHIN REACH, NO FURTHER NEEDS AT THIS TIME.
--- NOTE | 2022-02-20 01:24 | NUR ---
PT RESTING W/EYES CLOSED. RESPIRATIONS ARE EVEN AND UNLABORED, NO SIGNS OF DISTRESS. ABX INFUSING DIRECTED. PT APPEARS COMFORTABLE AT THIS TIME. CALL LIGHT WITHIN REACH.
--- NOTE | 2022-02-20 03:03 | NUR ---
IN PT ROOM D/T BED ALARM. PT IS GETTING UP FROM BED AT THIS TIME. PT STATED SHE NEEDED TO GRAB HER JACKET AND PHONE. PHONE NOW PLUGGED INTO THE WALL CHARGING, JACKET ON PT. NEW GOWN IN PLACE D/T ICE BAG LEAK AND BEDDING CHANGED. PORT AND IV SITE STILL IN PLACE AND WNL. PT NOW RESTING IN BED, NEW ICE WATER PROVIDED AND VANILLA PUDDING PROVIDED. NO ACUTE CHANGES FROM PREVIOUS ASSESSMENT. ALLEVYN STILL C/D/I ON BACK. FENTANYL IN PLACE ON BACK SHOULDER. CALL LIGHT WITHIN REACH, BED ALARM ON, NO FURTHER NEEDS AT THIS TIME.
--- NOTE | 2022-02-20 04:40 | NUR ---
PT RESTING W/EYES CLOSED. RESPIRATIONS ARE EVEN AND UNLABORED, NO SIGNS OF DISTRESS. CALL LIGHT WITHIN REACH. CONTINUOUS FLUIDS INFUSING DIRECTED.
--- NOTE | 2022-02-20 05:04 | NUR ---
PT RESTING W/EYES CLOSED. RESPIRATIONS ARE EVEN AND UNLABORED, NO SIGNS OF DISTRESS. CALL LIGHT WITHIN REACH. IV FLUIDS INFUSING DIRECTED.
--- NOTE | 2022-02-20 06:09 | NUR ---
IN PT ROOM FOR HANGING OF ABX. PT SITTING IN CHAIR BRUSHING HER TEETH AT THIS TIME. ABX INFUSION STARTED, PORT WNL. CALL LIGHT WITHIN REACH, CRM SYSTEM ADMINISTRATOR IN ROOM AT THIS TIME.
--- NOTE | 2022-02-20 06:40 | NUR ---
IN PT ROOM FOR BLOOD DRAW FROM PORT. CONTINUOUS FLUIDS ON STANDBY, PORT FLUSHED WITH 20 ML, 5 MINUTE WAIT, 10 ML WASTED, 10 ML OF DRAW SENT TO LAB, PULSATILE FLUSH W/20 ML. BRISK BLOOD RETURN, NO REDNESS AT PORT SITE. ABX AND CONTINUOUS FLUIDS NOW INFUSING AGAIN DIRECTED. CALL LIGHT WITHIN REACH, PT WATCHING TV AT THIS TIME.
--- NOTE | 2022-02-20 07:17 | NUR ---
Report from David Flannery RN. Patient sitting up in recliner. Call light in reach. No needs at this time.
--- NOTE | 2022-02-20 07:45 | NUR ---
in pt room. pt up in chair. tea provided to pt. no further needs. call light within reach
--- NOTE | 2022-02-20 10:00 | NUR ---
Pts friends in to complete POA. CG forgot purse and Todd and gone retrieve. Deny other needs. Plan remains for pt to dc at 12:40 per van.
--- NOTE | 2022-02-20 10:31 | NUR ---
when asked if she would like a shower, pt stated "no, we are still working". there are visitors present in room. no needs. call light within reach
--- NOTE | 2022-02-20 10:50 | NUR ---
Asked by staff to return to [facility] and speak with Ruben. He has questions about pt only drinking bottled water and she has many, many food requests. I let him know they will need to discuss all of this with [facility]. He states concern pt will not want to go if she is not provided these things. I let him know, these are choices the pt is asking for not requirements. He states she only eats gluten free food, I asked if she has been diagnosed as requiring glueten free food and is is not sure. We then discussed pt can refuse to go to the SNF, this is a safe dc. If she refuses then she will need to go home. Ruben states they cannot take her home. They cannot provide the care this pt requires. We then discussed pt really needs to go to [facility] if she is unable to care for herself. He then states he was notified [facility] has a case of the flu, let him know they did, but pt is off of isolation now. He states concern for pt to go if there is flu in the building. We then discussed everywhere you go now, there are people with the flu, covid, or RSV. Pt needs to wear her mask and she will be on isolation at [facility] for a few days. She was tested for covid last night and does not have covid at this time. Pt has not been wanting to wear a mask while she has been here. I again suggested if he does not want Mati to go to [facility], she will need to go home. I will again go in and speak with her about her diet, bottled water, special food, and the protocals at [facility] to prevent infection. Called and spoke with Erika at [facility]. They will provide a gluten free diet and they have $25,000 dollar filtration system for water and ice.
--- NOTE | 2022-02-20 12:15 | NUR ---
In and updated Mati, of what [facility] said. She denies need for bottled water and states she is fine with filtered water. She does state she would prefer a roommate. Let her know again, initially she will be on isolation due to covid increase in our area.
--- NOTE | 2022-02-20 12:56 | NUR ---
rEPORT CALLED TO AMARILYS AT [facility]. PATIENT TAKEN TO WHEELCHAIR VAN BY ANGELES CARRINGTON AND CHITRA'Shamar TO [facility].
--- NOTE | 2022-02-20 13:35 | NUR ---
INFORMED PT IS TO DC TO [facility] IN WITH PT. WILL CHECK BACK
== END 2022-02-20 12:45 | disposition swing bed (61) | DRG 689 ==
LOC: ED 20:44 → CCU 02-16 00:35 → MS 02-16 00:35
PROVIDERS: ADMIT Internal Medicine; ATTEND Internal Medicine
DX: N39.0 Urinary tract infection, site not specified (principal); G93.41 Metabolic encephalopathy; D81.9 Combined immunodeficiency, unspecified; G83.4 Cauda equina syndrome; Z20.822 Contact with and (suspected) exposure to COVID-19; M06.9 Rheumatoid arthritis, unspecified; F03.90 Unspecified dementia, unspecified severity, without behavioral disturbance, psychotic disturbance, mood disturbance, and anxiety; B96.20 Unspecified Escherichia coli [E. coli] as the cause of diseases classified elsewhere; G62.0 Drug-induced polyneuropathy; T45.1X5A Adverse effect of antineoplastic and immunosuppressive drugs, initial encounter; G89.29 Other chronic pain; M48.00 Spinal stenosis, site unspecified; Z90.89 Acquired absence of other organs; Z98.890 Other specified postprocedural states; Z98.1 Arthrodesis status; Z88.0 Allergy status to penicillin; Z88.8 Allergy status to other drugs, medicaments and biological substances; Z91.011 Allergy to milk products; Z91.013 Allergy to seafood; Z91.018 Allergy to other foods; Z79.899 Other long term (current) drug therapy
CPT/HCPCS: 36415; 51701; 51702; 70450; 70496; 70498; 71045; 72192; 80048; 80053; 81001; 83735; 84484; 85025; 85610; 85730; 87088; 87186; 87502; 94640; 94760; 97110; 97116; 97162; 97166; 97530; 99285-25; A9270; C9113; C9803; G0480; J1885; J2060; J2250; J2543; J3010; J3475; J3480; J7060; Q9967; U0003